=== PATIENT | female | born 1940 | race Caucasian/White ===

== ENCOUNTER 2020-04-22 09:31 | Outpatient (CLI) | payer MEDICARE, SELFPAY ==
[2020-04-22 09:55] LABS: Basophils Percent Auto 0.8 % (0.2-1.2); Eosinophils Absolute Auto 0.1 K/mm3 (0-0.3); Eosinophils Percent Auto 2.8 % (0-4.4); Hematocrit 38.7 % (37.0-47.0); Hemoglobin 12.9 g/dL (12.0-15.0); Immature Granulocyte Absolute 0.01 K/mm3 (0.00-0.031); Immature Granulocyte Percent A 0.2 % (0-0.5); Lymphocytes Absolute Auto 1.63 K/mm3 (0.9-3.2); Lymphocytes Percent Auto 32.1 % (18.3-44.2); Mean Corpuscular HGB Conc 33.3 g/dl (32-36); Mean Corpuscular Hemoglobin 29.7 pg (26-34); Mean Corpuscular Volume 89.2 fl (80-100); Mean Platelet Volume 10.1 fl (7.4-10.4); Monocytes Absolute Auto 0.4 K/mm3 (0.1-0.6); Monocytes Percent Auto 8.5 % (2.6-8.5); Neutrophils Absolute Auto 2.8 K/mm3 (1.3-6.7); Neutrophils Percent Auto 55.6 % (45.5-73.1); Platelet Count Result 204 k/mm3 (150-375); Red Blood Count 4.34 M/mm3 (4.2-5.4); Red Cell Distribution Width 12.9 % (11.5-14.5); White Blood Count 5.1 K/mm3 (4.5-10.0)
[2020-04-22 10:06] LABS: Alanine Aminotransferase 19 U/L (4-35); Albumin Level 4.3 g/dL (3.5-5.1); Alkaline Phosphatase 76 U/L (38-126); Anion Gap 6 mmol/L (8-16); Aspartate Amino Transferase 25 U/L (14-36); Bilirubin,Total 0.6 mg/dL (0.2-1.3); Blood Urea Nitrogen 25 mg/dL (7-17); Calcium 9.1 mg/dL (8.4-10.2); Carbon Dioxide 31 mmol/L (22-30); Chloride 101 mmol/L (98-107); Estimated Glomerular Filt Rate > 60; Glucose 108 mg/dL (65-105); Potassium 4.2 mmol/L (3.4-5.0); Sodium 138 mmol/L (137-145)
[2020-04-22 11:22] LABS: Vitamin D 25 Hydroxy 30.8 ng/mL
== END 2020-04-22 09:32 | disposition home or self-care (01) ==
PROVIDERS: PCP Internal Medicine; Visit Provider Clinical Nurse Specialist
DX: Z13.228 Encounter for screening for other metabolic disorders (principal); M85.80 Other specified disorders of bone density and structure, unspecified site
CPT/HCPCS: 36415; 80053; 82306; 85025

== ENCOUNTER → 2020-04-30 10:13 | Outpatient (CLI) | payer MEDICARE, SELFPAY ==
--- NOTE | ~2020-04-30 | MM_ITS ---
EXAMINATION: MM screening [facility] BI w briana HISTORY: Screening mammogram TECHNIQUE: Craniocaudal and mediolateral oblique 3-D tomosynthesis images were obtained and synthetic 2-D images were generated. CAD analysis was submitted and interpreted. COMPARISON: 05/26/2018, 04/19/2017, 03/16/2016, 10/29/2015 BREAST PARENCHYMAL COMPOSITION: The breasts are almost entirely fatty. FINDINGS: There are stable asymmetries in the right breast on the craniocaudal view. There is no evid ence of suspicious mass, calcification, or architectural distortion to suggest malignancy in either b reast. There has been no suspicious interval change. IMPRESSION: 1. No mammographic evidence of malignancy. 2. Recommend routine screening mammography in one year. BI-RADS Category 2: Benign finding(s). Reviewed, dictated and finalized at location A. 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
== END ==
PROVIDERS: PCP Internal Medicine; Visit Provider Obstetrics & Gynecology
DX: Z12.31 Encounter for screening mammogram for malignant neoplasm of breast (principal)
CPT/HCPCS: 77063; 77067

== ENCOUNTER 2020-10-30 08:29 | Outpatient (CLI) | payer MEDICARE, SELFPAY ==
[2020-10-30 08:52] LABS: Basophils Percent Auto 0.7 % (0.2-1.2); Eosinophils Absolute Auto 0.2 K/mm3 (0-0.3); Eosinophils Percent Auto 2.7 % (0-4.4); Hematocrit 38.3 % (37.0-47.0); Immature Granulocyte Absolute 0.01 K/mm3 (0.00-0.031); Immature Granulocyte Percent A 0.2 % (0-0.5); Lymphocytes Absolute Auto 1.85 K/mm3 (0.9-3.2); Lymphocytes Percent Auto 33.5 % (18.3-44.2); Mean Corpuscular HGB Conc 33.9 g/dl (32-36); Mean Corpuscular Hemoglobin 30.4 pg (26-34); Mean Corpuscular Volume 89.5 fl (80-100); Mean Platelet Volume 9.9 fl (7.4-10.4); Monocytes Absolute Auto 0.5 K/mm3 (0.1-0.6); Monocytes Percent Auto 8.9 % (2.6-8.5); Platelet Count Result 207 k/mm3 (150-375); Red Blood Count 4.28 M/mm3 (4.2-5.4); Red Cell Distribution Width 13.2 % (11.5-14.5); White Blood Count 5.5 K/mm3 (4.5-10.0)
[2020-10-30 09:04] LABS: Alanine Aminotransferase 19 U/L (4-35); Albumin Level 4.2 g/dL (3.5-5.1); Alkaline Phosphatase 79 U/L (38-126); Anion Gap 4 mmol/L (8-16); Aspartate Amino Transferase 26 U/L (14-36); Bilirubin,Total 0.7 mg/dL (0.2-1.3); Blood Urea Nitrogen 23 mg/dL (7-17); Calcium 9.9 mg/dL (8.4-10.2); Carbon Dioxide 33 mmol/L (22-30); Chloride 100 mmol/L (98-107); Cholesterol 177 mg/dL (0-200); Estimated Glomerular Filt Rate > 60; Glucose 105 mg/dL (65-105); HDL Direct 69 mg/dL; Potassium 4.2 mmol/L (3.4-5.0); Sodium 137 mmol/L (137-145); Triglycerides 133 mg/dL (<150)
[2020-10-30 09:14] LABS: LDL Cholesterol Direct 74 mg/dL
[2020-10-30 10:02] LABS: Vitamin D 25 Hydroxy 30.7 ng/mL
== END 2020-10-30 08:30 | disposition home or self-care (01) ==
PROVIDERS: PCP Internal Medicine; Visit Provider Clinical Nurse Specialist
DX: I10 Essential (primary) hypertension (principal); E55.9 Vitamin D deficiency, unspecified
CPT/HCPCS: 36415; 80053; 80061; 82306; 85025

== ENCOUNTER 2020-11-13 13:22 | Outpatient (CLI) | payer MEDICARE, SELFPAY ==
--- NOTE | 2020-11-13 13:31 | ECHO_ITS ---
Patient Info Name: Destiny Mullins Age: 80 years : 1940 Gender: Female Ht: 64 in Wt: 189 lbs BSA: 2.00 m2 HR: 88 bpm BP: 107 / 76 mmHg Technical Quality: Good Exam Date: 11/13/2020 2:01 PM Exam Location: [facility] Pulmonary Patient Status: Outpatient Admit Date: 11/13/2020 Staff Ordering Physician: Lissett Sheridan Material Liaison: Moy Rossi, TRISHA, RT Attending Provider: Lissett Sheridan Referring Physician: Arvin PRESLEY; Exam Type: CA echo doppler color flow Study Info Indications R06.02 - Shortness of breath Complete two-dimensional, color flow and Doppler transthoracic echocardiogram is performed. Summary 1. Complete two-dimensional, color flow and Doppler transthoracic echocardiogram is performed. 2. Left ventricular chamber dimension is normal. 3. Left ventricular systolic function is normal, estimated at 65-70%. 4. The left ventricular diastolic function is grade I diastolic dysfunction. 5. E/e' 11 is mildly elevated. 6. Left atrial chamber dimension is mildly enlarged. 7. The mitral valve has mildly calcified annulus. Left Ventricle E/e' 11 is mildly elevated. Left ventricular chamber dimension is normal. Left ventricular systolic function is normal, estimated at 65-70%. The left ventricular diastolic function is grade I diastolic dysfunction. Right Ventricle Right ventricular chamber dimension is normal. Right ventricular systolic function is normal. Left Atria Left atrial chamber dimension is mildly enlarged. Right Atria Right atrial chamber dimension is normal. Aortic Valve The aortic valve is probable trileaflet. There is no aortic valve stenosis. There is no aortic valve regurgitation. Pulmonic Valve There is no pulmonic regurgitation. Mitral Valve The mitral valve has mildly calcified annulus. There is no mitral valve stenosis. There is no mitral valve regurgitation. Tricuspid Valve There is no tricuspid valve regurgitation. Pericardium/Pleural There is no pericardial effusion. Inferior Vena Cava Normal inferior vena cava with >50% collapse upon inspiration consistent with normal right atrial pressure, 5 mmHg. Aorta The aortic root size at the sinus of Valsalva is normal. Left Ventricular Outflow Tract Name Value Normal LVOT 2D LVOT Diameter 1.9 cm LVOT Doppler LVOT Peak Gradient 4 mmHg LVOT Mean Gradient 2 mmHg LVOT VTI 19 cm LVOT VTI/AV VTI Ratio 0.9 LVOT Stroke Volume 55 ml LVOT CO 5.0 l/min LVOT CI 2.5 l/min/m2 Mitral Valve Name Value Normal MV Doppler MV Decel Sumner 313 cm/s2 MV PHT 69 ms
--- NOTE | 2020-11-13 13:32 | ECG_ITS ---
Measurements Intervals [place] Rate: 81 P: 30 MD: 155 QRS: -1 QRSD: 94 T: 31 QT: 379 QTc: 440 Interpretive Statements SINUS RHYTHM POSSIBLE LEFT ATRIAL ENLARGEMENT LOW QRS VOLTAGE IN PRECORDIAL LEADS BASELINE ARTIFACT- I, III, AVR, AVL, AVF BORDERLINE ECG Electronically Signed On 11-13-2020 14:44:12 CDT by Shorty Herbert D.O.
== END 2020-11-13 13:23 | disposition home or self-care (01) ==
LOC: ANHCARD 13:24
PROVIDERS: PCP Internal Medicine; Visit Provider Clinical Nurse Specialist
DX: R06.02 Shortness of breath (principal)
CPT/HCPCS: 93005; 93306

== ENCOUNTER 2021-01-24 15:26 | Outpatient (CLI) | payer MEDICARE, SELFPAY ==
--- NOTE | ~2021-01-24 | CT_ITS ---
EXAMINATION: CT abdomen pelvis w con INDICATION: Left lower quadrant pain, history of endometrial cancer TECHNIQUE: Computed tomographic images of the abdomen and pelvis were obtained after the administrati on of 100 cc of Omnipaque 350 intravenous contrast. The dose-length product (DLP) was 985.89 mGy-cm. Automated exposure control and iterative reconstruction technique were employed. COMPARISON: 08/04/2013 FINDINGS: The lung bases are clear. The heart size is normal. The liver, spleen, pancreas, gallbladde r, and adrenal glands are normal. There is a large diverticulum of the second portion of the duodenum . There is a 3 cm cyst of the right kidney. No pathologically enlarged abdominal or pelvic lymph node s are identified. There is no free intraperitoneal gas or evidence of bowel obstruction. There is odessa cified atherosclerosis of the aorta and many of the other arteries. Colonic diverticulosis is presen t without evidence of diverticulitis. The appendix is normal. There is severe lower thoracic and lumb ar spondylosis. A tiny fat-containing umbilical hernia is noted. IMPRESSION: 1. No CT correlate for the patient's symptoms. Reviewed, dictated and finalized at location A.
[2021-01-24 16:12] LABS: Estimated Glomerular Filt Rate > 60
== END 2021-01-24 15:27 | disposition home or self-care (01) ==
PROVIDERS: PCP Internal Medicine; Visit Provider Internal Medicine
DX: R10.9 Unspecified abdominal pain (principal)
CPT/HCPCS: 74177; Q9967

== ENCOUNTER 2021-05-01 08:50 | Outpatient (CLI) | payer MEDICARE, SELFPAY ==
[2021-05-01 09:37] LABS: Basophils Percent Auto 0.6 % (0.2-1.2); Eosinophils Absolute Auto 0.2 K/mm3 (0-0.3); Eosinophils Percent Auto 3.1 % (0-4.4); Hematocrit 37.8 % (37.0-47.0); Hemoglobin 12.8 g/dL (12.0-15.0); Immature Granulocyte Absolute 0.02 K/mm3 (0.00-0.031); Immature Granulocyte Percent A 0.4 % (0-0.5); Lymphocytes Absolute Auto 1.57 K/mm3 (0.9-3.2); Mean Corpuscular HGB Conc 33.9 g/dl (32-36); Mean Corpuscular Hemoglobin 30.9 pg (26-34); Mean Corpuscular Volume 91.3 fl (80-100); Mean Platelet Volume 9.9 fl (7.4-10.4); Monocytes Absolute Auto 0.5 K/mm3 (0.1-0.6); Monocytes Percent Auto 9.8 % (2.6-8.5); Neutrophils Absolute Auto 2.7 K/mm3 (1.3-6.7); Neutrophils Percent Auto 54.1 % (45.5-73.1); Platelet Count Result 211 k/mm3 (150-375); Red Blood Count 4.14 M/mm3 (4.2-5.4); Red Cell Distribution Width 13.3 % (11.5-14.5); White Blood Count 4.9 K/mm3 (4.5-10.0)
[2021-05-01 10:29] LABS: Vitamin D 25 Hydroxy 26.1 ng/mL
[2021-05-01 11:41] LABS: Alanine Aminotransferase 18 U/L (4-35); Albumin Level 4.3 g/dL (3.5-5.1); Alkaline Phosphatase 72 U/L (38-126); Anion Gap 5 mmol/L (8-16); Aspartate Amino Transferase 24 U/L (14-36); Bilirubin,Total 0.7 mg/dL (0.2-1.3); Blood Urea Nitrogen 17 mg/dL (7-17); Calcium 9.6 mg/dL (8.4-10.2); Carbon Dioxide 31 mmol/L (22-30); Chloride 101 mmol/L (98-107); Cholesterol 165 mg/dL (0-200); Estimated Glomerular Filt Rate > 60; Glucose 103 mg/dL (65-110); HDL Direct 66 mg/dL; Potassium 4.3 mmol/L (3.4-5.0); Sodium 137 mmol/L (137-145); Triglycerides 111 mg/dL (<150)
[2021-05-01 11:52] LABS: LDL Cholesterol Direct 69 mg/dL
== END 2021-05-01 08:51 | disposition home or self-care (01) ==
PROVIDERS: PCP Internal Medicine; Visit Provider Clinical Nurse Specialist
DX: E55.9 Vitamin D deficiency, unspecified (principal); R53.83 Other fatigue; R06.02 Shortness of breath; E78.5 Hyperlipidemia, unspecified
CPT/HCPCS: 36415; 80053; 80061; 82306; 84443; 85025

== ENCOUNTER 2021-07-17 10:33 | Outpatient (CLI) | payer MEDICARE, SELFPAY ==
--- NOTE | ~2021-07-17 | XR_ITS ---
XR knee LT min 4V 07/17/2021 10:57 Indication: Left knee pain Procedure: 4 views left knee Comparison: No prior studies for comparison. Findings: There is moderate-severe osteoarthritis of the left knee. Small joint effusion. No fracture or traumatic malalignment. No foreign bodies. Impression: 1: Moderate-severe osteoarthritis of the left knee with small effusion. Reviewed, dictated and finalized at location B. 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
== END 2021-07-17 10:34 | disposition home or self-care (01) ==
LOC: ANHIMG 10:34
PROVIDERS: PCP Internal Medicine; Visit Provider Family Medicine
DX: M25.562 Pain in left knee (principal); M17.12 Unilateral primary osteoarthritis, left knee; M25.462 Effusion, left knee
CPT/HCPCS: 73564

== ENCOUNTER 2021-11-06 09:42 | Outpatient (CLI) | payer MEDICARE, SELFPAY ==
[2021-11-06 10:14] LABS: Anion Gap 9 mmol/L (8-16); Blood Urea Nitrogen 24 mg/dL (7-17); Calcium 9.2 mg/dL (8.4-10.2); Carbon Dioxide 28 mmol/L (22-30); Chloride 101 mmol/L (98-107); Estimated Glomerular Filt Rate > 60; Glucose 97 mg/dL (65-110); Potassium 4.1 mmol/L (3.4-5.0); Sodium 138 mmol/L (137-145)
== END 2021-11-06 09:43 | disposition home or self-care (01) ==
PROVIDERS: PCP Internal Medicine; Visit Provider Clinical Nurse Specialist
DX: I10 Essential (primary) hypertension (principal)
CPT/HCPCS: 36415; 80048

== ENCOUNTER 2022-05-19 13:25 | Outpatient (CLI) | payer MEDICARE, SELFPAY ==
--- NOTE | ~2022-05-19 | US_ITS ---
EXAMINATION: US carotid duplex BI DATE: 05/19/2022 13:59 INDICATION: Dizziness TECHNIQUE: Grayscale, color Doppler, and pulsed Doppler images of the cervical carotid arteries were obtained. The degree of vessel stenosis is placed in one of the following categories: normal, <50%, 5 0-69%, >=70% but less than near-occlusion, near-occlusion, or total occlusion. Note that percent sten osis relative to normal distal artery lumen diameter is indirectly measured from velocity measurement s as described by Kenney, et al. Radiology 2003; 229:340-346. Notes: Normal: Peak systolic velocity <125 centimeters/sec and no plaque <50%. Peak systolic velocity <125 ( EDV <40; ICA/CCA PSV ratio <2.0; used these factors only a tandem lesions or low cardiac output or co ntralateral disease) 50-69 %: PSV 125-230 (EDV 40-100; ratio 2-4) >= 70% but less than near occlusion: PSV greater than 230 (EDV > 100; ratio> 4.0) Near Occlusion: PSV that is variable; markedly narrowed lumen Occlusion: Absent flow on color/spectral Doppler and no lumen on hodgson scale. COMPARISON: None. FINDINGS: RIGHT: The right common carotid artery (CCA) peak systolic velocity (PSV) is 78 cm/s. The right internal car otid artery (ICA) PSV is 64 cm/s. The right ICA end-diastolic velocity (EDV) is 20 cm/s. The right IC A/CCA PSV ratio is 0.8. The external carotid artery (ECA) PSV is 75 cm/s. There is antegrade flow in the right vertebral artery. LEFT: The left CCA PSV is 71 cm/s. The left ICA PSV is 68 cm/s. The left ICA EDV is 28 cm/s. The left ICA/C CA PSV ratio is 1.0. The ECA PSV is 53 cm/s. There is antegrade flow in the left vertebral artery. IMPRESSION: 1. Less than 50% stenosis in the right internal carotid artery by sonographic criteria. 2. Less than 50% stenosis in the left internal carotid artery by sonographic criteria. Reviewed, dictated and finalized at location A. 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 Less than 50% stenosis in the right internal carotid artery by sonographic teresa duncan. 2. Less than 50% stenosis in the left internal carotid artery by sonographic ming noel.
--- NOTE | ~2022-05-19 | XR_ITS ---
XR lumbar spine 2-3V DATE: 05/19/2022 14:06 INDICATION: Chronic low back pain TECHNIQUE: AP, lateral, coned lateral lumbosacral views COMPARISON: None FINDINGS: There is levoscoliosis of the thoracic and upper lumbar spine. Diffuse osteopenia. There is severe degenerative disc disease at L1-2, L2-3, L3-4 and L5-S1 and moderately prominent dege nerative disc disease at L4-5. There is associated mild retrolisthesis at L3-4. No fracture or bone destruction of the lumbar spine is evident. Included lower thoracic and lumbar pe dicles are intact. The sacroiliac joints are intact. Prominent distal aortic calcification without evidence of aneurysm. IMPRESSION: Multilevel severe degenerative disc disease Osteopenia Thoracolumbar levoscoliosis Reviewed, dictated and finalized at location B. TUTOR
== END 2022-05-19 13:26 | disposition home or self-care (01) ==
LOC: CHSIMG 13:27
PROVIDERS: PCP Internal Medicine; Visit Provider Internal Medicine
DX: R42 Dizziness and giddiness (principal); M54.50 Low back pain, unspecified
CPT/HCPCS: 72100; 93880

== ENCOUNTER 2022-05-29 12:15 | Outpatient (CLI) | payer MEDICARE, SELFPAY ==
--- NOTE | 2022-05-29 01:00 | ECHO_ITS ---
Patient Info Name: Destiny Mullins Age: 81 years : 1940 Gender: Female Ht: 63 in Wt: 188 lbs BSA: 1.98 m2 HR: 76 bpm BP: 117 / 69 mmHg Heart Rhythm: Sinus Rhythm Technical Quality: Fair Exam Date: 05/29/2022 1:11 PM Exam Location: [facility] EM[facility] Patient Status: Outpatient Admit Date: 05/29/2022 Staff Ordering Physician: Seng Hollingsworth MD Jail Officer: Shoshana Johnson RDCS Attending Provider: Seng Hollingsworth MD Referring Physician: Darrick MORALES; Exam Type: CA echo doppler color flow Study Info Indications R06.00 - Dyspnea, unspecified Complete two-dimensional, color flow and Doppler transthoracic echocardiogram is performed. Summary 1. Complete two-dimensional, color flow and Doppler transthoracic echocardiogram is performed. 2. Left ventricular chamber dimension is normal. 3. Left ventricular systolic function is normal, estimated at 65-70%. 4. There is mildly increased left ventricular wall thickness. 5. The left ventricular diastolic function is grade I diastolic dysfunction. 6. E/e' 23 is elevated. 7. Left atrial chamber dimension is mildly enlarged. 8. There is mild aortic valve sclerosis. 9. The mitral valve has moderately calcified annulus. 10. No pulmonary hypertension, estimated pulmonary arterial systolic pressure is 23 mmHg. Left Ventricle E/e' 23 is elevated. Left ventricular chamber dimension is normal. Left ventricular systolic function is normal, estimated at 65-70%. There is mildly increased left ventricular wall thickness. The left ventricular diastolic function is grade I diastolic dysfunction. Right Ventricle Right ventricular systolic function is normal and with normal TAPSE 2.1 cm. Right ventricular chamber dimension is normal. Left Atria Left atrial chamber dimension is mildly enlarged. Right Atria Right atrial chamber dimension is normal. Aortic Valve The aortic valve is trileaflet. There is mild aortic valve sclerosis. There is no aortic valve stenosis. There is no aortic valve regurgitation. Pulmonic Valve There is no pulmonic regurgitation. Mitral Valve The mitral valve has moderately calcified annulus. There is no mitral valve stenosis. There is no mitral valve regurgitation. Tricuspid Valve There is no tricuspid valve regurgitation. No pulmonary hypertension, estimated pulmonary arterial systolic pressure is 23 mmHg. Pericardium/Pleural There is no pericardial effusion. Inferior Vena Cava Normal inferior vena cava with >50% collapse upon inspiration consistent with normal right atrial pressure, 5 mmHg. Aorta The aortic root size at the sinus of Valsalva is normal. Left Ventricular Outflow Tract Name Value Normal LVOT 2D LVOT Diameter 2.0 cm LVOT Doppler LVOT Peak Velocity 117 cm/s LVOT Peak Gradient 6 mmHg LVOT Mean Gradient 3 mmHg LVOT VTI 27 cm LVOT VTI/AV VTI Ratio 0.8 LVOT Stroke Volume 82 ml Pulmonic Valve
== END 2022-05-29 12:16 | disposition home or self-care (01) ==
LOC: CHSIMG 12:17
PROVIDERS: PCP Internal Medicine; Visit Provider Internal Medicine
DX: R06.00 Dyspnea, unspecified (principal)
CPT/HCPCS: 93306

== ENCOUNTER 2022-06-24 09:13 | Outpatient (CLI) | payer MEDICARE, SELFPAY ==
--- NOTE | ~2022-06-24 | MM_ITS ---
EXAMINATION: MM screening [facility] BI w briana HISTORY: Screening mammogram TECHNIQUE: Craniocaudal and mediolateral oblique 3-D tomosynthesis images were obtained and synthetic 2-D images were generated. CAD analysis was submitted and interpreted. COMPARISON: 04/30/2020, 05/26/2018, 04/19/2017 BREAST PARENCHYMAL COMPOSITION: The breasts are almost entirely fatty. FINDINGS: There is focal asymmetry in the upper outer quadrant of the right breast. No suspicious mas s, calcification, or architectural distortion are identified in either breast to suggest malignancy. There has been no suspicious interval change. IMPRESSION: 1. No mammographic evidence of malignancy. 2. Recommend routine screening mammography while the patient remains in good health. BI-RADS Category 2: Benign finding(s). 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 No mammographic evidence of malignancy. 2. Recommend routine screening mammography while the patient remains in good he alth. BI-RADS Category 2: Benign finding(s).
--- NOTE | ~2022-06-24 | DEXA_ITS ---
Bone Density Report Name: DUY HASSAN Age: 81 Sex: Female Ethnicity: White Date of : 1940 Indication: postmenopausal; screening for osteoporosis; height loss; Referring Provider: Seng Hollingsworth Study: Bone densitometry was performed. Exam Date: June 24, 2022 Accession number: [id number] Bone Density: Region BMD T-score Z-score Classification AP Spine(L1-L4) 1.147 0.9 3.6 Normal Femoral Neck (Left) 0.654 -1.8 0.6 Osteopenia Total Hip (Left) 0.793 -1.2 0.9 Osteopenia Femoral Neck (Right) 0.709 -1.3 1.1 Osteopenia Total Hip (Right) 0.827 -0.9 1.2 Normal Femoral Neck Mean 0.682 -1.5 0.8 Osteopenia Total Hip Mean 0.810 -1.1 1.0 Osteopenia World Health Organization criteria for BMD impression classify patients as: Normal (T-score at or above -1.0), Osteopenia (T-score between -1.0 and -2.5), or Osteoporosis (T-score at or below -2.5). 10-year Fracture Risk(1): Major Osteoporotic Fracture 13% Hip Fracture 3.4% Reported Risk Factors: [place] (), Neck BMD=0.654, BMI=35.2 (1) FRAX(R) Version 3.08. Fracture probability calculated for an untreated patient. Fracture probability may be lower if the patient has received treatment. Clinical Information Provided by Patient: Has used the following medications: Vitamin D Patient maximum height was 63 Menopause Age: 51 No regular weight bearing exercise Does not regularly consume dairy products Drinks caffeinated beverages Onset of menses at age 13 Number of children 1 Impression: The patient has low bone mass, based on the Left Femoral Neck T-score. Discussion: BONE DENSITY IS LOW AT ONE OR MORE SKELETAL SITES. This patient's lowest T-score is low at one or more skeletal sites. It meets the World Health Organization's (WHO) criteria for ?low bone mass? (T-score between -1.0 and -2.5). The patient's 10-year risk of fracture as calculated by FRAX is less than the threshold where pharmacological therapy is recommended by the National Osteoporosis Foundation (NOF). However, all treatment decisions require clinical judgment and consideration of individual patient factors, including patient preferences, comorbidities, previous drug use, risk factors not captured in the FRAX model (e.g., frailty, falls, vitamin D deficiency, increased bone turnover, interval significant decline in bone density) and possible under or overestimation of fracture risk by FRAX. The patient should follow a healthful lifestyle (good nutrition with adequate calcium and vitamin D, and appropriate weight-bearing exercise). Follow-Up: Consider repeating this study in 2 to 3 years to reassess this patient's status, or sooner if there is some new clinical indication. Reported by: Dr. Chapito Rodriguez on 06/24/2022 10:09:00 AM.
== END 2022-06-24 09:14 | disposition home or self-care (01) ==
LOC: CHSIMG 09:14
PROVIDERS: PCP Internal Medicine; Visit Provider Internal Medicine
DX: Z12.31 Encounter for screening mammogram for malignant neoplasm of breast (principal); Z78.0 Asymptomatic menopausal state; M85.89 Other specified disorders of bone density and structure, multiple sites
CPT/HCPCS: 77063; 77067; 77080

== ENCOUNTER 2022-07-02 08:23 | Outpatient (CLI) | payer MEDICARE, SELFPAY ==
--- NOTE | ~2022-07-02 | MR_ITS ---
. EXAMINATION: MR lumbar spine wo con DATE: 07/02/2022 09:11 INDICATION: Chronic low back pain. TECHNIQUE: Magnetic resonance imaging (MRI) of the lumbar spine was performed without intravenous con trast. COMPARISON: Lumbar spine radiographs 05/19/2022 FINDINGS: There is 14 degrees dextroscoliosis of lumbar spine. There is 14 degrees levoscoliosis of t horacolumbar spine. There is 4 mm retrolisthesis of L2 on L3 and 3 mm retrolisthesis of L3 on L4. The re is mild chronic anterior wedging of T12 vertebral body. There is severely decreased disc height at T11-T12, moderately decreased disc height at T12-L1, severely decreased disc height at L1-L2, L2-L3, and L3-L4, mildly decreased disc height at L4-L5, and severely decreased disc height at L5-S1 with e ndplate remodeling. The distal spinal cord signal intensity is normal. The conus medullaris is at L2. The following disc levels are specifically discussed: L1-L2: The disc is bulging. There is moderate right and severe left facet joint osteoarthritis. There is mild bilateral neural foraminal stenosis. There is mild central canal stenosis. L2-L3: The disc is bulging and has an annular fissure. There is mild right and moderate left facet jhonny int osteoarthritis. There is mild right and moderate left neural foraminal stenosis. There is mild ce ntral canal stenosis. L3-L4: The disc is bulging and has an annular fissure. There is moderate bilateral facet joint osteoa rthritis. There is moderate bilateral neural foraminal stenosis. There is mild central canal stenosis . L4-L5: The disc is bulging. There is moderate right and severe left facet joint osteoarthritis. There is mild bilateral neural foraminal stenosis. There is mild central canal stenosis. L5-S1: The disc is bulging and has an annular fissure. There is moderate bilateral facet joint osteoa rthritis. There is moderate bilateral neural foraminal stenosis. There is mild central canal stenosis . IMPRESSION: 1. Severe lumbar spondylosis. 2. Scoliosis. Reviewed, dictated and finalized at location A. SINGER
== END 2022-07-02 08:24 | disposition home or self-care (01) ==
LOC: CHSIMG 08:23
PROVIDERS: PCP Internal Medicine; Visit Provider Internal Medicine
DX: M54.50 Low back pain, unspecified (principal); M43.06 Spondylolysis, lumbar region; M41.86 Other forms of scoliosis, lumbar region
CPT/HCPCS: 72148

== ENCOUNTER 2022-08-05 09:21 | Outpatient (CLI) | payer MEDICARE, SELFPAY ==
[2022-08-05] MEDS: ZOLEDRONIC ACID 5 MG/100 ML 100 ML 400 MG IVPB (09:40)
[2022-08-05 09:49] VITALS: BP 125/70; PULSE 68; RESP 14; TEMP 36.6; O2SAT 98; BMI 28.3
--- NOTE | 2022-08-05 10:07 | PC.NURSE ---
Patient here for IV Reclast. Education given. All concerns answered. IV Reclast administered. SEE MAR. Tolerated well. Safe exit of hospital.
== END 2022-08-05 09:22 | disposition home or self-care (01) ==
LOC: CHSTREATRM 09:23
PROVIDERS: PCP Internal Medicine; Visit Provider Internal Medicine
DX: M81.0 Age-related osteoporosis without current pathological fracture (principal)
CPT/HCPCS: 96365; J3489

== ENCOUNTER 2022-08-17 09:29 | Outpatient (CLI) | payer MEDICARE, SELFPAY ==
--- NOTE | 2022-08-17 11:00 | EST_ITS ---
Patient Info Name: Destiny Mullins Age: 82 years : 1940 Gender: Female Ht: 63 in Wt: 186 lbs BSA: 1.97 m2 HR: 68 bpm BP: 157 / 96 mmHg Technical Quality: Good Exam Date: 08/17/2022 10:49 AM Exam Location: [facility] Patient Status: Outpatient Admit Date: 08/17/2022 Staff Ordering Physician: Seng Hollingsworth MD Attending Provider: Seng Hollingsworth MD Exam Type: CA stress stu w NM Study Info A regadenoson stress test was performed. History/Risk Factors Hypertension: Yes Dyslipidemia: Yes Summary 1. 1. Negative lexiscan stress test for ischemic ST changes by ECG criteria. 2. 2. Baseline hypertension. 3. 3. Nuclear scan to follow and will be reported separately. Please correlate with it. Protocol: LEXISCAN Stress ECG Details Stage: REST Duration (min): 5 min : 39 sec HR (bpm): 69 SBP (mmHg): 157 DBP (mmHg): 96 Stage: REST Duration (min): 40 min : 55 sec HR (bpm): 68 SBP (mmHg): 157 DBP (mmHg): 96 Stage: STAGE 1 Duration (min): 0 min : 20 sec HR (bpm): 67 SBP (mmHg): 157 DBP (mmHg): 96 Stage: RECOVERY Duration (min): 0 min : 39 sec HR (bpm): 89 SBP (mmHg): 157 DBP (mmHg): 96 Stage: RECOVERY Duration (min): 1 min : 39 sec HR (bpm): 123 SBP (mmHg): 157 DBP (mmHg): 96 Stage: RECOVERY Duration (min): 2 min : 39 sec HR (bpm): 111 SBP (mmHg): 130 DBP (mmHg): 71 Stage: RECOVERY Duration (min): 3 min : 39 sec HR (bpm): 86 SBP (mmHg): 132 DBP (mmHg): 69 Stage: RECOVERY Duration (min): 4 min : 39 sec HR (bpm): 94 SBP (mmHg): 132 DBP (mmHg): 69 Stage: RECOVERY Duration (min): 5 min : 17 sec HR (bpm): 94 SBP (mmHg): 141 DBP (mmHg): 66 Rest HR: 68 bpm Peak HR: 123 bpm Rest Sys BP: 157 mmHg Peak Sys BP: 141 mmHg Max Pred HR: 139 bpm % Max Pred HR: 88 % Target HR: 118 bpm Max RPP: 17,343 bpm*mmHg Termination Reason: Completed Protocol Cardiac Symptoms: None Total Time: 0 min : 20 sec Rest Leon BP: 96 mmHg Peak Leon BP: 66 mmHg Total Dose: 0.4 mg Resting ECG Sinus Rhythm, delayed precordial R/S transition with occasional PVCs. Stress ECG No abnormal ST/T wave changes. Arrhythmias No arrhythmias were observed during the examination. Report Signatures
--- NOTE | 2022-08-17 15:35 | WPDCARIOSTRE ---
Nuclear Stress Test INDICATIONS Indications: WALTERS PROCEDURE Procedure Performed: Myocardial Perf Spect-Multi Procedure: Patient underwent a lexiscan stress test and was immediately injected with 30.0 mCi of cardiolyte. Multiple tomographic images are obtained. These are of good quality. There is a moderate size, moderate severity apical and lateral perfusion defects noted during stress imaging. A separate resting images were obtained after patient was injected with 10.39 mCi of cardiolyte. Multiple tomographic images are obtained. These are of good quality. There is a mild-moderate size, mild-moderate severity apical and lateral perfusion defects noted during stress imaging. CONCLUSION Conclusion: 1. Myocardial perfusion imaging demonstrates fixed apical and lateral perfusion defects which appear to be more attenuation artifacts given defects are somewhat less during stress imaging. 2. No evidence of reversible ischemia. 3. Left ventriculogram demonstrates normal measured ejection fraction of 70%. No wall motion abnormalities. 4. TID score 1.23 is borderline but does not visually dilate and therefore does not suggest LM or triple vessel disease.
== END 2022-08-17 09:30 | disposition home or self-care (01) ==
LOC: CHSIMG 09:31
PROVIDERS: PCP Internal Medicine; Visit Provider Internal Medicine
DX: R94.31 Abnormal electrocardiogram [ECG] [EKG] (principal); R06.00 Dyspnea, unspecified
CPT/HCPCS: 78452; 93017; A9502; J2785

== ENCOUNTER 2022-10-30 08:29 | Outpatient (CLI) | payer MEDICARE, SELFPAY ==
--- NOTE | ~2022-10-30 | CT_ITS ---
CT of the Abdomen and Pelvis: Indication: Abdominal pain Technique: 2.5 mm axial scans were obtained through the abdomen and pelvis following intravenous adm inistration of 100 cc of Omnipaque 350. Dose reduction technique was used on this scan by utilizing a utomated exposure control and iterative reconstruction technique. The dose-length product (DLP) was 7 67.93 mGy-cm. COMPARISON: 01/24/2021 Findings: Scans through the lung bases are unremarkable. The liver, spleen, pancreas, gallbladder, adrenals and kidneys are within normal limits. There are at herosclerotic calcifications of the aorta. No lymphadenopathy. No bowel obstruction or bowel wall thickening. Sigmoid diverticulosis noted. Prominent duodenal diver ticulum noted. Images through the pelvis were performed. Urinary bladder unremarkable. Patient is post hysterectomy. No adnexal mass seen. No ascites. Impression: No acute abnormality seen. Sigmoid diverticulosis as well as duodenal diverticulum. Reviewed, dictated and finalized at location . Impression: No acute abnormality seen. Sigmoid diverticulosis as well as duodenal diverticulum.
[2022-10-30 08:48] LABS: Estimated Glomerular Filt Rate > 60
== END 2022-10-30 08:30 | disposition home or self-care (01) ==
LOC: CHSIMG 08:31
PROVIDERS: PCP Internal Medicine; Visit Provider Internal Medicine
DX: R10.31 Right lower quadrant pain (principal); K57.30 Diverticulosis of large intestine without perforation or abscess without bleeding
CPT/HCPCS: 74177; Q9967

== ENCOUNTER 2023-07-29 16:07 | Outpatient (CLI) | payer MEDICARE, SELFPAY ==
--- NOTE | ~2023-07-29 | XR_ITS ---
EXAMINATION: XR knee LT 3V DATE: 07/29/2023 16:27 INDICATION: Left knee pain. TECHNIQUE: 3 views of left knee including standing views were obtained. COMPARISON: Left knee radiographs 07/17/2021 FINDINGS: There is varus angulation at the knee. There is lateral subluxation of patella. No fracture . There is severe osteoarthritis of medial and patellofemoral compartments and mild osteoarthritis of lateral compartment. There is a small knee joint effusion. IMPRESSION: 1. Severe left knee osteoarthritis. 2. Small left knee joint effusion. Reviewed, dictated and finalized at location E. 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
== END 2023-07-29 16:08 | disposition home or self-care (01) ==
LOC: CHSIMG 16:09
PROVIDERS: PCP Internal Medicine; Visit Provider Internal Medicine
DX: M25.562 Pain in left knee (principal); M17.12 Unilateral primary osteoarthritis, left knee; M25.462 Effusion, left knee
CPT/HCPCS: 73562

== ENCOUNTER 2023-08-19 08:50 | Outpatient (CLI) | payer MEDICARE, SELFPAY ==
[2023-08-19 09:00] VITALS: BMI 31.8
[2023-08-19] MEDS: ZOLEDRONIC ACID 5 MG/100 ML 100 ML 400 MG IVPB (09:10)
[2023-08-19 09:13] VITALS: BP 134/72; PULSE 72; RESP 14; TEMP 37.1; O2SAT 98
--- NOTE | 2023-08-19 09:51 | PC.NURSE ---
Patient here for IV Reclast. Education given. All concerns voiced answered. IV Reclast administered. SEE MAR. Tolerated well. Safe exit of hospital per self/ambulatory.
== END 2023-08-19 09:30 | disposition home or self-care (01) ==
LOC: CHSTREATRM 08:56
PROVIDERS: PCP Internal Medicine; Visit Provider Internal Medicine
DX: M81.0 Age-related osteoporosis without current pathological fracture (principal)
CPT/HCPCS: 96365; 96374; J3489

== ENCOUNTER 2023-11-11 07:25 | Outpatient (CLI) | payer MEDICARE, SELFPAY ==
--- NOTE | ~2023-11-11 | MR_ITS ---
MRI of the left knee Clinical history: Pain Technique: Coronal proton density and proton density-weighted images, sagittal proton-density and T2 fat-sat images, and axial proton-density fat-saturated images were acquired. Findings: Exam degraded by motion artifact on multiple sequences. Anterior cruciate ligament is very poorly delineated. Suggestion intact ligament on axial images, chronic ACL tear is not excluded. Post erior cruciate ligament is intact. Medial collateral ligament and the lateral collateral ligament com plex are intact. Popliteus tendon is intact. There is complex tearing involving the entirety of the medial meniscus, the anterior horn and body se gment completely macerated and essentially absent. There is probable complex tearing of the anterior horn of the lateral meniscus extending into the body segment. There is extensive grade IV chondromalacia of the medial compartment and the lateral femoral condyle. There is diffuse grade IV chondromalacia the patellofemoral compartment. Large tricompartmental oste ophytes are present with additional osteophytes and intercondylar notch. No fracture or suspicious ma rrow edema evident. Extensor mechanism is intact. Moderate joint effusion present. No Lopez's cyst. Impression: Severe tricompartmental osteophytes arthritis, as detailed above. Complex tearing involving the entirety of the medial meniscus, as detailed above. Complicating of the anterior horn and body lateral meniscus. Poor delineation of the ACL. Possible intact ligament seen on axial images, but chronic complete tear is not excluded. Correlate with physical exam for ACL laxity. Moderate joint effusion. Reviewed, dictated and finalized at [facility]. Impression: Severe tricompartmental osteophytes arthritis, as detailed above. Complex tearing involving the entirety of the medial meniscus, as detailed abov e. Complicating of the anterior horn and body lateral meniscus. Poor delineation of the ACL. Possible intact ligament seen on axial images, but chronic complete tear is not excluded. Correlate with physical exam for ACL la xity. Moderate joint effusion.
== END 2023-11-11 07:26 | disposition home or self-care (01) ==
LOC: CHSIMG 07:26
PROVIDERS: PCP Internal Medicine; Visit Provider Internal Medicine
DX: M25.562 Pain in left knee (principal); M17.12 Unilateral primary osteoarthritis, left knee; S83.232A Complex tear of medial meniscus, current injury, left knee, initial encounter; M25.462 Effusion, left knee
CPT/HCPCS: 73721

== ENCOUNTER 2023-12-24 12:52 | Outpatient (CLI) | payer MEDICARE, SELFPAY ==
--- NOTE | ~2023-12-24 | US_ITS ---
EXAMINATION: US venous doppler LE DATE: 12/24/2023 14:05 INDICATION: Dyspnea. Right lower limb swelling. Elevated d-dimer. TECHNIQUE: Grayscale ultrasound images without and with compression and Doppler ultrasound images of the bilateral lower extremity veins were obtained. COMPARISON: None. FINDINGS: The visualized portions of right common femoral vein, profunda (deep) femoral vein, femoral vein, pop liteal vein, posterior tibial veins, peroneal veins, gastrocnemius vein and greater saphenous vein ou tflow are patent. 7.5 x 3.7 x 4.3 cm Lopez's cyst at the right popliteal fossa. The visualized portions of left common femoral vein, profunda femoral vein, femoral vein, popliteal v ein, posterior tibial veins, peroneal veins, gastrocnemius vein and greater saphenous vein outflow ar e patent. IMPRESSION: 1. No deep venous thrombosis in either lower limb. 2. Large Lopez's cyst at the right popliteal fossa. Reviewed, dictated and finalized at location B.
--- NOTE | ~2023-12-24 | CT_ITS ---
EXAMINATION: CTA chest PE protocol DATE: 12/24/2023 13:39 INDICATION: Dyspnea and bilateral lower limb swelling TECHNIQUE: Computed tomography (CT) pulmonary angiogram of the chest was performed with 100 mL Omnipa que-350 intravenous contrast. Additional 3D reconstructions utilizing coronal maximum intensity proje ction (MIP) were performed. Automated exposure control and iterative reconstruction technique were em ployed. The dose-length product was 645.28 mGy-cm. COMPARISON: None FINDINGS: No pulmonary embolism. Mild elevation the left hemidiaphragm. Small calcified left lower lobe nodule consistent with old granulomatous disease. No pneumonia, pulmonary edema or pleural effusion. Heart s ize is normal. No pericardial effusion. Thoracic aorta is normal in caliber with no dissection. No pa thologically enlarged thoracic lymphadenopathy. Visualized upper abdomen is unremarkable. Mild thorac olumbar levoscoliosis with severe spondylosis. There are also bridging osteophytes at multiple levels consistent with diffuse idiopathic skeletal hyperostosis (DISH). IMPRESSION: 1. No pulmonary embolism or other acute cardiopulmonary disease. Reviewed, dictated and finalized at location B.
[2023-12-24 13:22] LABS: Estimated Glomerular Filt Rate > 60
== END 2023-12-24 12:53 | disposition home or self-care (01) ==
LOC: CHSIMG 12:55
PROVIDERS: PCP Internal Medicine; Visit Provider Internal Medicine
DX: R06.00 Dyspnea, unspecified (principal); M79.89 Other specified soft tissue disorders; R79.1 Abnormal coagulation profile; M71.21 Synovial cyst of popliteal space [Baker], right knee
CPT/HCPCS: 71275; 93970; Q9967

== ENCOUNTER 2024-01-19 09:13 | Outpatient (CLI) | payer MEDICARE, SELFPAY ==
--- NOTE | 2024-01-19 09:26 | ECG_ITS ---
Test Date: 2024-01-19 09:36:44 Measurements Intervals [place] Rate: 82 P: 54 MO: 147 QRS: 36 QRSD: 91 T: 61 QT: 354 QTc: 414 Interpretive Statements SINUS RHYTHM WITH SINUS ARRHYTHMIA LOW QRS VOLTAGE IN PRECORDIAL LEADS BORDERLINE ECG No previous ECG available for comparison Electronically Signed On 01-19-2024 10:09:33 CDT by Shorty Herbert D.O.
[2024-01-19 09:34] LABS: Hematocrit 36.5 % (35.0-42.0); Hemoglobin 12.8 g/dL (11.7-13.8)
[2024-01-19 10:17] LABS: Albumin Level 3.4 g/dL (3.4-5.0); Glucose 129 mg/dL (70-99)
== END 2024-01-19 09:14 | disposition home or self-care (01) ==
LOC: CHSLAB 09:15
PROVIDERS: PCP Internal Medicine; Visit Provider Orthopaedic Surgery
DX: E78.5 Hyperlipidemia, unspecified (principal); E55.9 Vitamin D deficiency, unspecified; M17.12 Unilateral primary osteoarthritis, left knee; I49.8 Other specified cardiac arrhythmias
CPT/HCPCS: 36415; 82040; 82947; 85014; 85018; 93005

== ENCOUNTER 2024-02-01 09:53 | Outpatient (RCR) | payer MEDICARE, SELFPAY ==
--- NOTE | 2024-02-01 11:01 | PTOPEVAL1 ---
Assessment and note entered by Dora Rashid DPT Evaluation Information Assessment Status Evaluation Diagnosis L knee pain Other ICD-10 Condition Codes ( M17.12 PT) Onset 02/01/24 Subjective Information Patient reports she has had chronic L knee pain that was not improving with injections. She is now using a cane due to knee pain and poor balance. She has 5 steps to get into the house. She states that walking is when she has the most knee pain. She also reports that sitting down on low chairs and the toilet cause pain. She reports she is scheduled for L TKA on 04/03/24. She is here to do pre-op therapy to strengthen LE. Reported Pain Level Pain Score 0: Self Report Assessment PT Clinical Summary Mrs. Mullins is a 83 year old female who presents to PT with L knee pain. She demonstrates decreased L knee ROM, decreased L LE strength, and impaired gait limited her ability to sit in low chairs and the toilet, ambulate to grocery shop and navigate steps. She is undergoing L TKA on 04/03/24. She would benefit from skilled PT to address impairments and return to PLOF. Plan of Care Interventions Electrical Stimulation,Gait Training,Hot Pack/Cold Pack,Intermittent Compression,Manual Therapy, Neuro Re-education,Patient/Caregiver Educati, Therapeutic Activities,Therapeutic Exercise PT Services Indicated Yes Treatment Frequency and 2x weekly for 10 visits Duration These treatments will address the objective and functional deficits as defined above. The patient will be advanced safely and appropriately in order for the patient to progress towards his/her prior level of function. Additional exercises will be introduced and as well as a comprehensive home exercise program upon discharge, if needed, ?to ensure carryover of functional gains achieved in the clinic. This treatment plan has been reviewed and agreement upon by the patient.
--- NOTE | 2024-03-03 09:37 | OPREHPOC ---
Outpatient Therapy Plan of Care This is a Multidisciplinary Plan of Care that may contain components documented by all disciplines (PT, OT, and ST.) PT Problem 1 PT Problem #1 Knowledge Deficit PT Goal 1 Goal / Goal Update Patient to demonstrate independence with HEP Target Visit 10 Progress Met PT Problem 2 PT Problem #2 Pain PT Goal 1 Goal / Goal Update Patient to report highest pain at 2/10 Target Visit 10 Progress Not Met PT Problem 3 PT Problem #3 Impaired Range of Motion PT Goal 1 Goal / Goal Update Patient to demonstrate 0-120 deg of L knee active ROM to return to sitting on toilet and squatting for house hold tasks at PLOF Target Visit 10 Progress Partially Met PT Problem 4 PT Problem #4 Impaired Strength PT Goal 1 Goal / Goal Update Patient to demonstrate 4+/5 L knee strength to return to ambulation without AD Target Visit 10 Progress Partially Met PT Problem 5 PT Problem #5 Impaired Functional Mobil PT Goal 1 Goal / Goal Update 1. patient to improve LEFS score by 20%. not met 2. patient to complete 6 min walk test with no AD and complete 800' to return to grocery shopping. not met 3. patient to report ability to navigate 5 steps with no increase in L knee pain. not met 4. patient to improve Tinetti balance score by 6 points. not met Target Visit 10 Progress Not Met
--- NOTE | 2024-03-03 09:37 | PTOPREEVAL ---
Assessment and note entered by JT File, PT Evaluation Information Assessment Status Re-evaluation Diagnosis L knee pain Other ICD-10 Condition Codes ( M17.12 PT) Onset 02/01/24 Subjective Information patient is still scheduled to have L knee replacement on 04/03/24. she does follow up with her surgeon next week for another pre-op visit. she reports her pain in the L knee continues, and now the R knee feels it is wearing out as well. Reported Pain Level Pain Score 6,6: Self Report Assessment PT Clinical Summary mrs. holliday presents to skilled PT services for her 10th skilled PT visit today. she is still pre-op on her L TKA. patient has displayed improved L knee active rom, L LE strength, and is independent in use of the cane in the R hand for ambulation on level ground and steps. she will hold therapy at this time until post-op L TKA due to patient having yearly visit limits/restrictions on her insurance. she was educated to be diligent and continue her HEP at home every day until surgery. Plan of Care Interventions Electrical Stimulation,Gait Training,Hot Pack/Cold Pack,Intermittent Compression,Manual Therapy, Neuro Re-education,Patient/Caregiver Educati, Therapeutic Activities,Therapeutic Exercise PT Services Indicated Yes Treatment Frequency and hold therapy until post op L TKA Duration These treatments will address the objective and functional deficits as defined above. The patient will be advanced safely and appropriately in order for the patient to progress towards his/her prior level of function. Additional exercises will be introduced and as well as a comprehensive home exercise program upon discharge, if needed, ?to ensure carryover of functional gains achieved in the clinic. This treatment plan has been reviewed and agreement upon by the patient.
--- NOTE | 2024-04-17 15:22 | PTOPREEVAL ---
Assessment and note entered by [facility] Evaluation Information Assessment Status Re-evaluation Diagnosis left TKA ICD-10 Condition Codes (PT) Z47.89,Z47.1 Other ICD-10 Condition Codes ( M17.12 PT) Onset 04/03/24 Subjective Information Pt. reports she underwent left TKA on 04/03/24. She reports that she is currently using a cane for ambulation. She states that she has not yet returned to driving and her is driving her . She states that she was very active and did all IADL's without assistance prior to surgery. She reports that she is getting better each day in regards to her knee replacement. Her goal is to be able to walk normal and without an AD. Reported Pain Level Pain Score 1,1: Self Report Assessment PT Clinical Summary Pt. enters the clinic 2 weeks post left TKA. She presents with impaired gait, functional decline, impaired strength and impaired ROM on this date. Continued skilled PT is indicated in order to improve these areas to allow the pt. to be able to return to normal gait and normal IADL performance without limitation. Plan of Care Interventions Electrical Stimulation,Hot Pack/Cold Pack, Intermittent Compression,Manual Therapy,Neuro Re- education,Patient/Caregiver Educati,Therapeutic Activities,Therapeutic Exercise PT Services Indicated Yes Treatment Frequency and 2x/week x 12 visits Duration These treatments will address the objective and functional deficits as defined above. The patient will be advanced safely and appropriately in order for the patient to progress towards his/her prior level of function. Additional exercises will be introduced and as well as a comprehensive home exercise program upon discharge, if needed, ?to ensure carryover of functional gains achieved in the clinic. This treatment plan has been reviewed and agreement upon by the patient.
--- NOTE | 2024-04-17 15:46 | OPREHPOC ---
Outpatient Therapy Plan of Care This is a Multidisciplinary Plan of Care that may contain components documented by all disciplines (PT, OT, and ST.) PT Problem 1 PT Problem #1 Knowledge Deficit PT Goal 1 Goal / Goal Update Patient to demonstrate independence with HEP Target Visit 10 Progress Met PT Problem 2 PT Problem #2 Pain PT Goal 1 Goal / Goal Update Patient to report highest pain at 2/10 Target Visit 10 Progress Not Met PT Problem 3 PT Problem #3 Impaired Range of Motion PT Goal 1 Goal / Goal Update Patient to demonstrate 0-120 deg of L knee active ROM to return to sitting on toilet and squatting for house hold tasks at PLOF Target Visit 10 Progress Not Met PT Problem 4 PT Problem #4 Impaired Strength PT Goal 1 Goal / Goal Update Patient to demonstrate 4+/5 L knee strength to return to ambulation without AD Target Visit 10 Progress Not Met PT Problem 5 PT Problem #5 Impaired Functional Mobil PT Goal 1 Goal / Goal Update 1. patient to improve LEFS score by 20%. 2. patient to complete 6 min walk test with no AD and complete 700' to return to grocery shopping. 3. patient to report ability to navigate 5 steps with no increase in L knee pain. not met 4. Patient will be able to ambulate without an AD over level surface with equal ight and left stance time. Target Visit 10 Progress Not Met
== END 2024-04-27 20:00 | disposition still patient (30) ==
LOC: CHSPT 09:53
PROVIDERS: Visit Provider Orthopaedic Surgery
DX: M17.12 Unilateral primary osteoarthritis, left knee (principal)
CPT/HCPCS: 97014; 97110; 97161; 97530; G0283

== ENCOUNTER 2024-03-08 13:53 | Outpatient (CLI) | payer MEDICARE, SELFPAY ==
[2024-03-08 15:28] LABS: Basophils Percent Auto 0.5 % (0.2-1.2); Eosinophils Absolute Auto 0.1 K/mm3 (0-0.3); Eosinophils Percent Auto 1.4 % (0-4.4); Hematocrit 36.7 % (37.0-47.0); Hemoglobin 12.4 g/dL (12.0-15.0); Immature Granulocyte Absolute 0.02 K/mm3 (0.00-0.031); Immature Granulocyte Percent A 0.3 % (0-0.5); Lymphocytes Absolute Auto 2.04 K/mm3 (0.9-3.2); Lymphocytes Percent Auto 26.5 % (18.3-44.2); Mean Corpuscular HGB Conc 33.8 g/dl (32-36); Mean Corpuscular Hemoglobin 31.4 pg (26-34); Mean Corpuscular Volume 92.9 fl (80-100); Mean Platelet Volume 10.2 fl (7.4-10.4); Monocytes Absolute Auto 0.6 K/mm3 (0.1-0.6); Monocytes Percent Auto 7.8 % (2.6-8.5); Neutrophils Absolute Auto 4.9 K/mm3 (1.3-6.7); Neutrophils Percent Auto 63.5 % (45.5-73.1); Platelet Count Result 218 k/mm3 (150-375); Red Blood Count 3.95 M/mm3 (4.2-5.4); Red Cell Distribution Width 13.5 % (11.5-14.5); White Blood Count 7.7 K/mm3 (4.5-10.0)
[2024-03-08 15:42] LABS: Urine Cotinine NEGATIVE
[2024-03-08 15:44] LABS: Albumin Level 4.3 g/dL (3.5-5.1)
[2024-03-08 15:46] LABS: Hemoglobin A1C 6.1 % (<5.7)
[2024-03-08 16:38] LABS: MRSA (PCR) NOT DETECTED (NOT DETECTE)
[2024-03-09 12:32] LABS: Anion Gap 4 mmol/L (4-12); Blood Urea Nitrogen 33 mg/dL (7-17); Calcium 9.3 mg/dL (8.4-10.2); Carbon Dioxide 27 mmol/L (22-30); Chloride 97 mmol/L (98-107); Estimated Glomerular Filt Rate 53; Glucose 100 mg/dL (65-110); Potassium 3.8 mmol/L (3.4-5.0); Sodium 128 mmol/L (137-145)
== END 2024-03-08 13:54 | disposition home or self-care (01) ==
PROVIDERS: Anesthesiology; PCP Internal Medicine; Visit Provider Orthopaedic Surgery
DX: Z01.812 Encounter for preprocedural laboratory examination (principal); M17.12 Unilateral primary osteoarthritis, left knee; Z51.81 Encounter for therapeutic drug level monitoring
CPT/HCPCS: 36415; 80048; 80307; 82040; 83036; 85025; 87641

== ENCOUNTER 2024-04-03 00:23 | Day surgery (SDC) | payer MEDICARE, SELFPAY ==
[2024-03-08 14:26] VITALS: BP 133/53; PULSE 80; RESP 16; TEMP 36.9; O2SAT 94; BMI 32.8
--- NOTE | 2024-03-08 14:44 | PC.NURSE ---
Report to the Outpatient Waiting Room, entrance under the green pavilion located off [facility], at time 10:00am___on date _04/03/24 . Planned Procedure Time: __12:00pm .? Time changes happen often and if your time is changed the preop area will call you the afternoon before. - You and your visitor will be asked to self-screen and do not enter if you have any COVID symptoms. Please call surgeon if you need to reschedule. - A mask is optional within the hospital at this time. Patients may have clear liquids (water, carbonated beverages, clear teas, apple juice) until 3 hours prior to surgery with a maximum of 20 ounces. - No food from midnight until time of surgery and no smoking (0900am) Take only the following medications with a SIP of water on the morning of surgery: __None DO NOT STOP ANY OF YOUR OTHER PRESCRIPTION MEDICATIONS PRIOR TO SURGERY EXCEPT THE FOLLOWING Medications to discontinue per physician Hold all vitamins, supplements, herbs and probiotics 3 days prior per Anesthesia. Date to take last dose 03/30/24 Please no make-up, nail greenlandic, hairspray, perfume, deodorant, or body powder the day of surgery.? No jewelry (including any body piercings) or valuables the day of surgery, leave them at home.? Please take a shower or bath the night before, or the morning of, surgery with an antibacterial soap.? Wear comfortable, loose fitting clothing.? Children are encouraged to wear pajamas. - Jewelry must be removed prior to entering the operating room.? Rings and piercings that are not removed may be cut off. - The hospital will not accept responsibility for valuables.? - Please leave all valuables, including medications, at home the day of surgery. If you are going home after surgery, a licensed emergency medical technician/driver must drive you home.? - NO public transportation without another adult if you receive anesthesia. - We recommend that an adult stay with you for 24 hours following discharge. - We also recommend that you do not drive, make important decision, drink alcoholic beverages, or take any drugs that were not prescribed by your health care provider for at least 24 hours after your discharge time. Follow any additional instructions given to you from your surgeon. Telephone instructions given to ___patient and asked if any additional questions and then verbalized understanding. Patient advised to call surgeon office or pre surgery nurse liaison [phone] if any additional questions.
[2024-04-03] VITALS (13 sets, daily range): BP systolic 108–141; BP diastolic 49–80; PULSE 76–102; RESP 14–22; TEMP 36.2–37.2; O2SAT 94–100
--- NOTE | ~2024-04-03 | XR_ITS ---
[id number] Ordering provider: Glen Tamayo MD History: . POST-OP, LEFT TKA . Comparison: None. FINDINGS: BONES: No acute fracture or dislocation. JOINT SPACES: Total knee arthroplasty. SOFT TISSUES: Postoperative changes in the subcutaneous tissues. IMPRESSION: No acute osseous abnormality left knee. Left total knee arthroplasty. Reviewed, dictated and finalized at location A.
[2024-04-03] MEDS: LACTATED RINGERS 1,000 ML 30 ML IV CONT ×2 (10:45→14:20)
[2024-04-03] MEDS: TRANEXAMIC ACID 1,000MG/ISO100 1,000 MG/100 ML BAG 200 MG IVPB (10:45)
[2024-04-03] MEDS: ACETAMINOPHEN 500 MG TABLET 1000 MG PO (10:45)
--- NOTE | 2024-04-03 11:36 | WPDANESEPPF ---
Anes - Initial Pre Proc Eval Procedure: Operation Date: 04/03/24 12:00 Proposed Procedures p Left Total Knee Arthroplasty - Glen Tamayo MD Date/Time: 04/03/24 11:36 Surgeon: Glen Tamayo MD Pre Op Diagnosis: Prim O A Lt Knee Patient Data Age: 83 Gender: F Height: 1.6 m Weight: 82.4 kg Last Vital Signs Temp 36.8 C 04/03/24 10:45 Pulse 102 H 04/03/24 10:45 Resp 14 04/03/24 10:45 BP 138/62 04/03/24 10:45 Pulse Ox 96 04/03/24 10:45 O2 Del Method Room Air 04/03/24 10:45 Allergies Allergy/AdvReac Type Severity Reaction Status Date / Time No Known Allergies Allergy Verified 04/03/24 10:56 Home Medications Medication Instructions Recorded Confirmed Type pravastatin 40 mg tablet See Rx Instructions .Route 01/13/22 03/08/24 Rx .COMPLEX #90 tabs losartan 50 mg-hydrochlorothiazide 1 tablet PO DAILY #90 tabs 02/26/22 03/08/24 Rx 12.5 mg tablet esomeprazole magnesium 20 mg See Rx Instructions .Route 04/21/22 03/08/24 Rx capsule,delayed release .COMPLEX #90 caps potassium chloride 10 mEq oral 10 meq PO DAILY 12/31/23 04/03/24 History packet torsemide 10 mg tablet 10 mg PO QAM 12/31/23 03/08/24 History Vitamin B-12 2,500 mcg PO DAILY 03/08/24 04/03/24 History acetaminophen 650 mg 650 mg PO PRN PRN Pain 03/08/24 03/08/24 History tablet,extended release (Tylenol Arthritis Pain) cholecalciferol (vitamin D3) 50 2,000 unit PO DAILY 03/08/24 04/03/24 History mcg (2,000 unit) tablet (Vitamin D3) Patient hx anesthesia problems: none Family hx anesthesia problems: none Results Review: All pre-operative results and documents have been reviewed as part of the pre-operative evaluation. [facility] Past Medical History Medical History Gonzalez's esophagus with low grade dysplasia Chronic bilateral low back pain without sciatica GERD (gastroesophageal reflux disease) History of endometrial cancer History of postoperative nausea HTN (hypertension) Hyperlipidemia Keratin cyst Osteoarthritis Uterine cancer Surgical History Surgical History H/O: hysterectomy 2013 Family History Family History Mother Family history of malignant neoplasm of uterus Family history of coronary artery disease Father Coronary artery disease Colon cancer Social History Social History Smoking status: Never smoker Alcohol intake: current Substance use: never Do You Feel Safe in your Home?: Yes Lack of Transportation: No Lack of Food: Never True Current Housing: Decline to Answer Concerned About Future Housing: No Difficulty Paying Gas/Electric Bills: No Difficulty Paying for Meds: No Currently Unemployed: No Education: High School Diploma/GED Difficulty w/ Childcare or Family Care: No Living arrangements: with family Additional living arrangements comments: Spiritual care concerns: No Anes - Eval Final PreProcedure Day of Procedure 04/03/24 11:36 Patient weight: obese Heart: regular rate and rhythm Lungs: clear to auscultation Airway: Mallampati scale class II Neurological: alert and oriented Last oral intake: >/= 8 hours ASA classification: II Emergent: no Anesthetic plan: proceed Anesthesia type and monitoring: general LMA and standard monitoring Results Review: All pre-operative results and documents have been reviewed as part of the pre-operative evaluation. Informed Consent: The patient's anesthetic plan and its attendant risks and benefits were discussed with the patient/family/POA. Questions were solicited and answers provided to the satisfaction of the patient/family/POA.
--- NOTE | 2024-04-03 11:39 | WPDHPUPDATE1 ---
History and Physical Update Update Date/Time: 04/03/24 11:39 History and Physical has been reviewed, including an updated exam of the patient. There are NO changes in the patient's condition. Risks, benefits, and alternatives have been discussed and questions answered. Patient agrees to proceed with procedure.
[2024-04-03] MEDS: ceFAZolin 2 GM/D5W 50 ML 2 GM/50 ML BAG IVPB ×2 (12:02→20:12)
[2024-04-03] MEDS: SODIUM CHLORIDE 0.9% IV 37.7 ML, MORPHINE SULFATE INJ (*CRX) 2 MG, ROPivacaine HCL 1% 2... INFILTRATE (12:45)
[2024-04-03] MEDS: TRANEXAMIC ACID 1,000 MG/10 ML AMPUL 1000 MG IV PUSH (14:00)
--- NOTE | 2024-04-03 15:03 | W.PM.PROC2 ---
Procedure Note - Detailed Date of Procedure 04/03/24 Pre-op Diagnosis Severe osteoarthritis left knee. Post-op Diagnosis Same Procedure Performed Calipe[place], kinematically aligned total knee replacement left knee. Surgeon Glen Tamayo MD Anesthesia General Findings According to the calipered kinematic alignment principles, the knee was balanced by the following verification checks incorporating 6 caliper measurements, using an insert goniometer to select the insert thickness, and adjusting the tibial resection following the kinematic alignment algorithm (see figure 160.10 published in [employer] chapter on kinematic alignment total knee arthroplasty.) The steps verified the femoral and tibial components were kinematically aligned coincident to the patient's pre arthritic joint lines, which closely restored the [place] tibial compartment forces and ligament laxities without ligament release. The [employer], [employer] knee, designed specifically for kinematic alignment, fit optimally. The record of verification checks were documented and scanned into the chart. Distal Femoral Resection: Distal Medial 6 mm(cartilage worn), Distal Lateral 8 mm Target thickness of 8mm Unworn, 6mm Worn (No Cartilage). Posterior Femoral Resection: Posterior Medial 5 mm(cartilage worn), Posterior Lateral 5 mm(cartilage worn) Target thickness of 7mm Unworn, 5mm Worn (No Cartilage). Tibia varus preoperative 6 degrees; postoperative 6 degrees. Tibia slope preoperative 5 degrees; postoperative 5 degrees. Description of Procedure General anesthesia was administered. A well-padded tourniquet was placed high on the thigh. The limb was prepped and draped in the usual sterile fashion. The limb was exsanguinated and the tourniquet inflated to 300 mmHg. A longitudinal incision was created over the midline of the knee. Sharp dissection was taken through subcutaneous tissues. Electrocautery was used for hemostasis. A trivector approach to the knee joint was performed. The ACL, anterior horns of the menisci, and fat pad were excised, and a subperiosteal dissection was carried along the posterior medial border of the tibia. The thickness of the [place] patella was measured with a caliper. The patella was resected using the oscillating saw. The best fitting anatomic patella button was selected. The fixation holes were drilled. When the patella and patella buttons combined thickness was thicker than the [place] patella, the patella was recut. Starting midway between the top of the notch in the anterior femoral cortex, I drilled a 9 mm diameter hole parallel to the anterior cortex to minimize flexion of the femoral component and promote patella tracking. I verified the existence of a 5-10 mm bone bridge between the posterior aspect of the hole and the anterior limit of the intercondylar notch. An intraosseous positioning eliza was inserted 10 cm into the femur perpendicular to the distal joint line and parallel to the anterior cortex. I used a distal femoral referencing guide that compensated 2 mm when the cartilage was worn on the distal medial femoral condyle, and 2 mm when the cartilage was worn on the distal lateral femoral condyle. The basis for setting the distal and posterior femoral resection guide is knowing that the varus and valgus grade II to IV Kellegren-Kieran osteoarthritic knees have negligible bone wear at 0? and 90? and that the mean full-thickness cartilage wear approximates 2 mm. I measured the thickness of distal femoral resections with a caliper to +/- 0.5 mm. The thickness of each resection was adjusted to match the thickness of the respective condyle of the femoral component within 0.5 mm of target after compensating for cartilage wear and kerf. When the distal resection was 1-2 mm too thin, a recut guide was used to adjust the cut. When the distal resection was too thick, a 1 or 2 mm thick washer was fixed to the back of the 4-in-1 chamfer block to zhao a c
[2024-04-03] MEDS: ONDANSETRON INJ 4 MG/2 ML VIAL IV PUSH (15:26)
[2024-04-03] MEDS: fentaNYL CITRATE INJ (*CRX) 100 MCG/2 ML VIAL 25 MCG IV PUSH (15:38)
--- NOTE | 2024-04-03 16:12 | ADMGEN ---
This patient, Destiny Mullins, was admitted to [facility] Surg Room 306-01. Patient/family oriented to hospital policies and general routines including ID bracelet, bed and alarms, visiting hours, pain management, procedures, bathroom and other care routines, personal items, smoking policy, room service/diet, and visiting hours. Information on how to activate the Rapid Response Team has been discussed. Patient/Family are encouraged to report perceived risks to care and to ask questions if they do not understand what they are told or what they should do.
[2024-04-03] MEDS: SODIUM CHLORIDE 0.9% IV 1,000 ML 125 ML IV CONT (17:15)
[2024-04-03] MEDS: MELOXICAM 7.5 MG TABLET PO (18:35)
[2024-04-03] MEDS: SENNA/DOCUSATE SODIUM TABLET 2 TAB PO (18:35)
[2024-04-03] MEDS: predniSONE 5 MG TABLET PO (18:36)
[2024-04-03] MEDS: ACETAMINOPHEN 325 MG TABLET 650 MG PO (18:36)
--- NOTE | 2024-04-03 19:48 | PC.NURSE ---
Pt experiencing post op nausea r/t anesthesia. Asa and tylenol po orders put in by ortho doc for post op. Pt unable to take and keep down any PO meds at this time. Dr salinas contacted and was relayed the message that pt unable to take po meds at this time and was asked what he would like to do instead. Dr salinas confirmed okay to non admin asa and tylenol tonight. Dr salinas also wanted to add on iv ativan for nausea and anxiety.
[2024-04-03] MEDS: LORazepam INJ (*CRX) 2 MG/ML VIAL 1 MG IV PUSH (20:13)
[2024-04-04 00:08] VITALS: BP 121/57; PULSE 78; RESP 18; TEMP 36.3; O2SAT 94
[2024-04-04] MEDS: ceFAZolin 2 GM/D5W 50 ML 2 GM/50 ML BAG IVPB ×2 (03:03→12:13)
[2024-04-04 05:40] VITALS: BP 121/65; PULSE 85; RESP 20; TEMP 36.6; O2SAT 91
[2024-04-04 06:46] LABS: Basophils Percent Auto 0.1 % (0.2-1.2); Hematocrit 31.8 % (37.0-47.0); Hemoglobin 10.7 g/dL (12.0-15.0); Immature Granulocyte Absolute 0.04 K/mm3 (0.00-0.031); Immature Granulocyte Percent A 0.4 % (0-0.5); Lymphocytes Absolute Auto 0.95 K/mm3 (0.9-3.2); Lymphocytes Percent Auto 10.3 % (18.3-44.2); Mean Corpuscular HGB Conc 33.6 g/dl (32-36); Mean Corpuscular Hemoglobin 31.7 pg (26-34); Mean Corpuscular Volume 94.1 fl (80-100); Mean Platelet Volume 10.6 fl (7.4-10.4); Monocytes Absolute Auto 0.7 K/mm3 (0.1-0.6); Neutrophils Absolute Auto 7.5 K/mm3 (1.3-6.7); Neutrophils Percent Auto 81.2 % (45.5-73.1); Platelet Count Result 184 k/mm3 (150-375); Red Blood Count 3.38 M/mm3 (4.2-5.4); Red Cell Distribution Width 13.2 % (11.5-14.5); White Blood Count 9.2 K/mm3 (4.5-10.0)
[2024-04-04 06:54] LABS: Anion Gap 4 mmol/L (4-12); Blood Urea Nitrogen 28 mg/dL (7-17); Calcium 8.4 mg/dL (8.4-10.2); Carbon Dioxide 28 mmol/L (22-30); Chloride 104 mmol/L (98-107); Estimated CRCL calculation 54 ml/min; Estimated Glomerular Filt Rate > 60; Glucose 103 mg/dL (65-110); Sodium 136 mmol/L (137-145)
[2024-04-04] MEDS: ONDANSETRON INJ 4 MG/2 ML VIAL IV PUSH ×2 (08:24→13:17)
--- NOTE | 2024-04-04 09:18 | PM.DS ---
DS: Admitting Diagnosis Discharge Date 04/04/24 Admitting Diagnosis Knee arthritis DS: Discharge Diagnosis Discharge Diagnosis (1) Status post left knee replacement: Code(s): Z96.652 - Presence of left artificial knee joint Status: Acute Assessment and Plan: Postop day 1: Left total knee arthroplasty. Patient tolerated procedure well. No complications. Pain manageable with pain medication. No numbness or tingling. We had a lengthy discussion regarding postoperative wound care, limitations, expectations, and exercises. Patient shows good understanding. She has had initial physical therapy and is tolerating it well. DVT prophylaxis: 81 mg baby aspirin b.i.d. for 14 days. Pain medication: Percocet. Prednisone. Meloxicam. Patient has followup appointment with Dr. Tamayo in 3 weeks. DS: Summary Hospital Course Reason for hospitalization: Total knee arthroplasty Hospital Course: Patient tolerated procedure well. Has had initial PT/OT. Status at Discharge Functional status at discharge: uses cane/walker Overall status at discharge: patient is progressing back to baseline Time Spent with Patient Time attestation: Total time spent providing and/or coordinating discharge services: Exam Narrative: Obese 83 y/o female. Resting comfortably in bed. Wearing compression socks bilaterally. Dressing intact with no drainage. Mild swelling. Minimal ecchymosis. No erythema. No hematoma. Range of motion limited due to pain. 5-90 degrees. Calf nontender. Neurologic status intact. No varicosities. Distal pulses palpable. DS: Data Data Completed and Pending Labs on day of discharge: Labs from last 24 hours 04/04/24 04/03/24 06:03 10:30 WBC 9.2 RBC 3.38 L Hgb 10.7 L Hct 31.8 L MCV 94.1 MCH 31.7 MCHC 33.6 RDW 13.2 Plt Count 184 MPV 10.6 H Immature Gran % (Auto) 0.4 Neut % (Auto) 81.2 H Lymph % (Auto) 10.3 L [place] % (Auto) 8.0 Eos % (Auto) 0.0 Baso % (Auto) 0.1 L Lymph # (Auto) 0.95 [place] # (Auto) 0.7 H Eos # (Auto) 0.0 Baso # (Auto) 0.0 Abs Immat Gran (auto) 0.04 H Absolute Neuts (auto) 7.5 H Absolute Nucleated RBC 0.000 Nucleated RBC % 0.0 Sodium 136 L Potassium 4.0 Chloride 104 Carbon Dioxide 28 Anion Gap 4 BUN 28 H Creatinine 0.70 Estim Creat Clear Calc 54 Estimated GFR > 60 Glucose 103 Calcium 8.4 Blood Type AB Positive Antibody Screen Negative Discharge Plan Discharge Patient Disposition: Home, Self-Care Discharge Instructions: See green instruction sheets Stand Alone Forms: General Discharge Instructions Follow-up/Referrals: Mara Michaels PA [Physician Paediatric Physiotherapist] - Discharge Medications: New meloxicam 15 mg tablet 15 mg PO DAILY Qty: 30 0RF Rx Instructions: Cut in half. Take 1/2 in morning and 1/2 at night. Take with food. Stop if stomach upset. prednisone 5 mg tablet 5 mg PO DAILY 21 Days Qty: 21 0RF aspirin 81 mg tablet,delayed release (DR/EC) 81 mg PO BID 14 Days Qty: 28 0RF oxycodone-acetaminophen 5-325 mg tablet 1 - 2 tablet PO Q4-6H PRN (Reason: pain) 7 Days Qty: 30 0RF Continued potassium chloride 10 mEq packet 10 meq PO DAILY torsemide 10 mg tablet 10 mg PO QAM cholecalciferol (vitamin D3) [Vitamin D3] 50 mcg (2,000 unit) Tablet 2,000 unit PO DAILY Vitamin B-12 2,500 mcg PO DAILY acetaminophen [Tylenol Arthritis Pain] 650 mg Tablet Extended Release 650 mg PO PRN PRN (Reason: Pain) pravastatin 40 mg tablet See Rx Instructions .ROUTE .COMPLEX Qty: 90 1RF Dose Instruction: TAKE 1 TABLET BY MOUTH EVERY DAY Rx Instructions: TAKE 1 TABLET BY MOUTH EVERY DAY losartan-hydrochlorothiazide 50-12.5 mg tablet 1 tablet PO DAILY Qty: 90 1RF esomeprazole magnesium 20 mg capsule,delayed release(DR/EC) See Rx Instructions .ROUTE .COMPLEX Qty: 90 1RF Dose I
[2024-04-04 09:40] VITALS: BP 121/44; PULSE 75; RESP 18; TEMP 36.8; O2SAT 93
[2024-04-04] MEDS: polyethylene glycoL 3350 17 GM POWD.PACK PO (10:03)
[2024-04-04] MEDS: CYANOCOBALAMIN TAB 2,000 MCG, CYANOCOBALAMIN TAB 500 MCG 2500 MCG PO (10:03)
[2024-04-04] MEDS: CHOLECALCIFEROL 1,000 UNITS TABLET 2000 UNITS PO (10:03)
[2024-04-04] MEDS: SENNA/DOCUSATE SODIUM TABLET 2 TAB PO (10:04)
[2024-04-04] MEDS: POTASSIUM CHLORIDE 20 MEQ PACKET (FOR LIQUID) 10 MEQ PO (10:04)
[2024-04-04] MEDS: LOSARTAN POTASSIUM 50 MG TABLET PO (10:04)
[2024-04-04] MEDS: ASPIRIN 81 MG ENTERIC TABLET PO (10:04)
[2024-04-04] MEDS: hydroCHLOROthiazide 12.5 MG CAPSULE PO (10:04)
[2024-04-04] MEDS: PRAVASTATIN SODIUM 20 MG TABLET 40 MG PO (10:05)
[2024-04-04] MEDS: MELOXICAM 7.5 MG TABLET PO (10:05)
[2024-04-04] MEDS: TORSEMIDE 10 MG TABLET PO (10:06)
[2024-04-04] MEDS: oxyCODONE/ACETAMINOPHEN (*CRX) 5-325 MG TABLET 1 TABLET PO (10:07)
[2024-04-04] MEDS: ACETAMINOPHEN 325 MG TABLET 650 MG PO (12:13)
[2024-04-04 13:40] VITALS: BP 110/40; PULSE 65; RESP 18; TEMP 36.8; O2SAT 95
[2024-04-04 16:16] VITALS: BP 112/50; PULSE 68; RESP 18; TEMP 36.8; O2SAT 100
== END 2024-04-04 15:50 | disposition home or self-care (01) ==
LOC: ANHSURGERY 09:48 → ANH3MEDSUR 16:03
PROVIDERS: PCP Internal Medicine; Visit Provider Orthopaedic Surgery
PROC: (CPT 27447; principal; 2024-04-03 12:00)
DX: M17.12 Unilateral primary osteoarthritis, left knee (principal); M25.762 Osteophyte, left knee; I10 Essential (primary) hypertension; E78.5 Hyperlipidemia, unspecified; K21.9 Gastro-esophageal reflux disease without esophagitis; K22.710 Barrett's esophagus with low grade dysplasia; G89.29 Other chronic pain; M54.50 Low back pain, unspecified; E66.9 Obesity, unspecified; Z68.32 Body mass index [BMI] 32.0-32.9, adult; Z98.890 Other specified postprocedural states; Z85.42 Personal history of malignant neoplasm of other parts of uterus; Z80.49 Family history of malignant neoplasm of other genital organs; Z80.0 Family history of malignant neoplasm of digestive organs; Z82.49 Family history of ischemic heart disease and other diseases of the circulatory system
CPT/HCPCS: 27447; 36415; 73560; 80048; 80307; 82040; 83036; 85025; 86850; 86900; 86901; 87641; 97110; 97116; 97161; 97165; 97530; 97535; C1776; A9270; C1713; J0171; J0690; J1100; J1171; J1885; J2003; J2060; J2270; J2405; J2704; J2795; J3010; J7030; J7120; J7512

== ENCOUNTER 2024-05-02 10:19 | Outpatient (RCR) | payer MEDICARE, SELFPAY ==
--- NOTE | 2024-05-17 11:38 | PTOPPROGNS ---
Assessment and note entered by JT File, PT Evaluation Information Assessment Status Progress Diagnosis left TKA ICD-10 Condition Codes (PT) Z47.89,Z47.1 Other ICD-10 Condition Codes ( M17.12 PT) Onset 04/03/24 Subjective Information patient reports she feels good today. she reports she has no pain in the L knee. she reports she is bothered more by the R knee than the L, especially with walking and stairs. Assessment PT Clinical Summary mrs. holliday presents to skilled PT for her 10th skilled PT visit since her L TKA. she has achieved full L knee active rom, improved strength of the L knee, and ambulation without an AD. however, she has yet to meet all functional goals for walking, stair ambulation, and LEFS score. she would do well to continue skilled PT per post op POC to achieve her remaining goals and return to her prior quality of life/functional activity performance Plan of Care Interventions Therapeutic Exercise,Intermittent Compression, Patient/Caregiver Educati,Manual Therapy,Neuro Re- education,Therapeutic Activities,Hot Pack/Cold Pack,Electrical Stimulation PT Services Indicated Yes Treatment Frequency and continue per post op POC Duration These treatments will address the objective and functional deficits as defined above. The patient will be advanced safely and appropriately in order for the patient to progress towards his/her prior level of function. Additional exercises will be introduced and as well as a comprehensive home exercise program upon discharge, if needed, ?to ensure carryover of functional gains achieved in the clinic. This treatment plan has been reviewed and agreement upon by the patient.
--- NOTE | 2024-05-26 10:57 | OPREHPOC ---
Outpatient Therapy Plan of Care This is a Multidisciplinary Plan of Care that may contain components documented by all disciplines (PT, OT, and ST.) PT Problem 1 PT Problem #1 Knowledge Deficit PT Goal 1 Goal / Goal Update Patient to demonstrate independence with HEP Target Visit 10 Progress Met PT Problem 2 PT Problem #2 Pain PT Goal 1 Goal / Goal Update Patient to report highest pain at 2/10 Target Visit 10 Progress Met PT Problem 3 PT Problem #3 Impaired Range of Motion PT Goal 1 Goal / Goal Update Patient to demonstrate 0-120 deg of L knee active ROM to return to sitting on toilet and squatting for house hold tasks at PLOF Target Visit 10 Progress Met PT Problem 4 PT Problem #4 Impaired Strength PT Goal 1 Goal / Goal Update Patient to demonstrate 4+/5 L knee strength to return to ambulation without AD Target Visit 10 Progress Met PT Problem 5 PT Problem #5 Impaired Functional Mobil PT Goal 1 Goal / Goal Update 1. patient to improve LEFS score by 20%. not met 2. patient to complete 6 min walk test with no AD and complete 700' to return to grocery shopping. not met 3. patient to report ability to navigate 5 steps with no increase in L knee pain. met 4. Patient will be able to ambulate without an AD over level surface with equal ight and left stance time. met for no AD for ambulation Target Visit 12 Progress Partially Met
--- NOTE | 2024-05-26 10:57 | PTOPDC ---
Assessment and note entered by JT File, PT Evaluation Information Assessment Status Discharge Diagnosis left TKA ICD-10 Condition Codes (PT) Z47.89,Z47.1 Other ICD-10 Condition Codes ( M17.12 PT) Onset 04/03/24 Subjective Information patient reports she feels good today. she reports she has no pain in the L knee. she reports the L knee feels great, and she is only bothered with standing, walking, stairs due to the R knee. she reports she knows she needs a new knee on the R side. Reported Pain Level Pain Score 0: Self Report Assessment PT Clinical Summary mrs. holliday presents to skilled PT services for her 12th skilled therapy visit since her L TKA. she presents today having met 62.5% of goals for skilled PT. she displays full L knee rom, L knee strength, and no pain in the L knee. she is limited with activities now due to the R knee that needs replaced. she will DC skilled PT today and continue with HEP on her own with plans to have the R knee replaced early next year. Plan of Care PT Services Indicated Yes
== END 2024-05-26 11:27 | disposition home or self-care (01) ==
LOC: CHSPT 10:19
PROVIDERS: Visit Provider Orthopaedic Surgery
DX: Z47.1 Aftercare following joint replacement surgery (principal); M17.12 Unilateral primary osteoarthritis, left knee; Z96.652 Presence of left artificial knee joint
CPT/HCPCS: 97110; 97112; 97530

== ENCOUNTER 2024-07-20 10:04 | Outpatient (CLI) | payer MEDICARE, SELFPAY ==
--- NOTE | ~2024-07-20 | US_ITS ---
EXAMINATION: US venous doppler [facility] DATE: 07/20/2024 10:29 INDICATION: Left lower limb edema. TECHNIQUE: Grayscale ultrasound images without and with compression and Doppler ultrasound images of the left lower extremity veins were obtained. COMPARISON: Ultrasound 12/24/2023 FINDINGS: The visualized portions of left common femoral vein, profunda (deep) femoral vein, femoral vein, popl iteal vein, peroneal veins, posterior tibial veins, and greater saphenous vein outflow are patent. IMPRESSION: 1. No deep venous thrombosis. Reviewed, dictated and finalized at location A. GAGE ASSISTANT
--- OUTSIDE RECORDS SUMMARY | 2024-07-20 10:55 | XMS_ITS | Clinical Summary ---
Author Organization [facility] Address [address] [place] [address] Care Team Providers Care Thread Weaver Name Role Phone Vinny Villalpando DO Primary Care Provider [phone] Source Comments [facility],non-owned Affiliates and Associated Physician Practices is amultiple site organization consisting of ambulatory clinics and hospital sitesin [place], [place]. This disclosure is being madepursuant to the Care Everywhere program and may not contain all information available regarding this patient. Last updated 18.[facility] [employer] Allergies No known active allergies Medications * Be aware that medications may not be up to date on this document. Alwaysverify current medications with the patient. Medication Sig Dispensed Refills Start Date End Date Status losartan - hydrochlorothiazide (HYZAAR) 50-12.5 MG tablet Take 1 Tab by mouth once daily. Active pravastatin (PRAVACHOL) 40 MG tablet Take 40 mg by mouth at bedtime. Active esomeprazole (NEXIUM) 40 MG capsule Take 40 mg by mouth daily before breakfast. Active ibuprofen (MOTRIN) 600 MG tablet Take 1 Tab by mouth every 6 hours as needed for Pain. 60 Tab 1 08/01/2013 Active Active Problems Problem Noted Date Diagnosed Date Obesity (BMI 30.0-34.9) 10/12/2017 Endometrial cancer 08/05/2013 Family History Medical History Relation Name Comments Cancer - Colon Father Cancer - Uterine Mother Relation Name Status Comments Father Mother Social History Tobacco Use Types Packs/Day Years Used Date Smoking Tobacco: Never Smokeless Tobacco: Never Tobacco Cessation:Counseling Given: Yes Alcohol Use Standard Drinks/Week Comments No 0 (1 standard drink = 0.6 oz pur e alcohol) Sex and Gender Information Value Date Recorded Sex Assigned at Not on file Gender Identity Not on file Sexual Orientation Not on file Last Filed Vital Signs Vital Sign Reading Time Taken Comments Blood Pressure 155/84 10/13/2018 10:30 AM CDT Pulse 88 10/13/2018 10:30 AM CDT Temperature 36.9 ??C (98.4 ??F) 08/06/2013 11:[address] Respiratory Rate 20 08/06/2013 11:29 AM BILLET HEADER Oxygen Saturation 94% 08/06/2013 11:29 AM BILLET HEADER Inhaled Oxygen Concentration - - Weight 84.4 kg (186 lb) 10/13/2018 10:30 AM CDT Height 160 cm (5' 3 ) 10/13/2018 10:30 AM CDT Body Mass Index 32.95 10/13/2018 10:30 AM CDT Plan of Treatment Health Maintenance Due Date Last Done Comments BONE DENSITY TESTING 1941 DTAP/TDAP/TD VACCINES (1 - Tdap) 1960 PNEUMOCOCCAL VACCINE 50+ (1 of 1 - PCV) 1991 ZOSTER VACCINE (1 of 2) 1991 Respiratory Syncytial Virus (RSV) Vaccine Pt: or over 60 yrs (1 - 1-dose 75+ series) 2016 COVID-19 VACCINE ( - 2023-2 5 season) 2024 INFLUENZA VACCINE (#1) 2024 DEPRESSION SCREENING 06/21/2024 HEPATITIS B VACCINE Aged Out No longe r eligible based on patient's age to complete this topic HIB VACCINE Aged Out No longer eligi ble based on patient's age to complete this topic HPV VACCINE Aged Out No longer eligi ble based on patient's age to complete this topic MENINGOCOCCAL (Group B) VACCINE Aged Out No longer eligible based on patient's age to complete this topic MENINGOCOCCAL VACCINE Aged Out No nate filipe eligible based on patient's age to complete this topic Advance Directives * Full Code (Latest Code Status on File) Date Activated Date Inactivated Comments 08/05/2013 2:09 AM 08/06/2013 2:05 PM * FULL RESUSCITATION Date Activated Date Inactivated Comments 07/31/2013 2:41 PM 08/01/2013 5:46 PM Care Teams Thread Weaver Relationship Specialty Start Date End Date Vinny Villalpando DO PCP - General Internal Medicine 07/26/13
--- OUTSIDE RECORDS SUMMARY | 2024-07-20 10:55 | XMS_ITS | Referral Summary ---
Author Organization [facility] Address [address] [place] [address] Care Team Providers Care Accounting Practice Manager Name Role Phone Vinny Villalpando DO Primary Care Provider [phone] [facility],non-owned Affiliates and Associated Physician Practices is amultiple site organization consisting of ambulatory clinics and hospital sitesin [place], [place], [place] and [place]. This disclosure is being madepursuant to the Care Everywhere program and may not contain all information available regarding this patient. Last updated 18.[facility] [employer] Allergies No known active allergies Medications * [...] Obesity (BMI 30.0-34.9) 10/12/2017 Endometrial cancer 08/05/2013 Social History Tobacco Use Types Packs/Day Years [...] ST Respiratory Rate 20 08/06/2013 11:29 AM INTERLIBR[employer] SERVICES LIBRARIAN Oxygen Saturation 94% 08/06/2013 11:29 AM [employer] SERVICES LIBRARIAN Inhaled Oxygen Concentration - - Weight 84.4 kg (186 lb) 10/13/2018 10:30 AM CDT Height 160 cm (5' 3 ) 10/13/2018 10:30 AM CDT Body Mass Index 32.95 10/13/2018 10:30 AM CDT Functional Status Functional Status Response Date of Assess ment Is person deaf or have serious hearing difficult y? No 08/06/2013 Is person blind or have serious difficulty seein g? No 08/06/2013 Does person have serious dif ficulty walking/climbing stairs? No 08/06/2013 Does person have difficulty dressing/bathing? No 08/06/2013 Does person have difficulty doing errands alone? No 08/06/2013 Cognitive Status Response Date of Assessm ent Does person have difficulty concentrating/remembering/making decisions? No 08/06/2013 Plan of Treatment Not on file Advance Directives * Full Code (Latest Code Status on File) Date Activated Date Inactivated Comments 08/05/2013 2:09 AM 08/06/2013 2:05 PM * FULL RESUSCITATION Date Activated Date Inactivated Comments 07/31/2013 2:41 PM 08/01/2013 5:46 PM Care Teams Accounting Practice Manager Relationship Specialty Start Date End Date Vinny Villalpando DO PCP - General Internal Medicine 07/26/13
--- OUTSIDE RECORDS SUMMARY | 2024-07-20 10:55 | XMS_ITS | Patient Health Summary ---
Author Organization [facility] Address [address] [place] [address] Care Team Providers Care Sales Development Executive Name Role Phone Vinny Villalpando DO Primary Care Provider [phone] Note from [facility],non-owned Affiliates and Associated Physician Practices is amultiple site organization consisting of ambulatory clinics and hospital sitesin [place], [place], [place] and [place]. This disclosure is being madepursuant to the Care Everywhere program and may not contain all information available regarding this patient. Last updated 18.[facility] Allergies No known active allergies Medications * Be aware that medications may not be up to date on this document. Alwaysverify current medications with the patient. * losartan - hydrochlorothiazide (HYZAAR) 50-12.5 MG tablet Take 1 Tab by mouth once daily. * pravastatin (PRAVACHOL) 40 MG tablet Take 40 mg by mouth at bedtime. * esomeprazole (NEXIUM) 40 MG capsule Take 40 mg by mouth daily before breakfast. * ibuprofen (MOTRIN) 600 MG tablet(Started 08/01/2013) Take 1 Tab by mouth every 6 hours as needed for Pain. 1 refill left Active Problems Problem Noted Date Diagnosed Date [...] ST Respiratory Rate 20 08/06/2013 11:29 AM CHIEF MINISTER Oxygen Saturation 94% 08/06/2013 11:29 AM CHIEF MINISTER Inhaled Oxygen Concentration - - Weight 84.4 kg (186 lb) 10/13/2018 10:30 AM CDT Height 160 cm (5' 3 ) 10/13/2018 10:30 AM CDT Body Mass Index 32.95 10/13/2018 10:30 AM CDT Procedures * PAP IG RFLX HPV ASCU(Performed 12/12/2013) * CARDIAC RHYTHM STRIP ORDER(Performed 2013) * CBC W AUTO DIFFERENTIAL(Performed 08/05/2013) * BASIC METABOLIC PANEL (CALCIUM TOTAL)(Performed 08/05/2013) * CARDIAC EKG ORDER(Performed 08/02/2013) * LAB RESULTS ORDER(Performed 08/02/2013) * CARDIAC RHYTHM STRIP ORDER(Performed 08/02/2013) * CBC W AUTO DIFFERENTIAL(Performed 08/01/2013) Performed for Endometrial malignant neoplasm (HCC) * PATHOLOGY TISSUE EXAM (STL)(Performed 07/31/2013) Performed for Endometrial malignant neoplasm (HCC) * URINE MICROSCOPIC ONLY REFLEX TO CULTURE(Performed 07/31/2013) Performed for Endometrial malignant neoplasm (HCC) * URINALYSIS REFLEX MICROSCOPIC REFLEX CULTURE(Performed 07/31/2013) Performed for Endometrial malignant neoplasm (HCC) * LAPAROSCOPIC TOTAL HYSTERECTOMY (TLH)(Performed 07/31/2013) 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 - 12/18/2013 7:49 AM CDT Angeline Keane MD LAB - PATHOLOGY/CYTO LOGY ORDERABLES [facility] [address] [place] [address], [facility] * CARDIAC RHYTHM STRIP ORDER (2013 6:55 PM CHIEF MINISTER) Only the most recent of2 resultswithin the time period is included. Narrative 2013 6:55 PM CHIEF MINISTER Ordered by an unspecified provider. Transcriptions Document, Scanned - 2013 6:55 PM CST Scanned Document CARDIAC SERVICES ORD ERABLES * (ABNORMAL) CBC W AUTO DIFFERENTIAL (08/05/2013 4:37 AM CHIEF MINISTER) Only the most recent of2 resultswithin the time period is included. WBC 9.0 4.4 - 10.7 x10^9/L 08/05/2013 5:00 AM [facility] RBC 3.86 3.80 - 5.20 x10^12/L 08/05/2013 5:00 AM [facility] Hemoglobin 11.4(L) 12.0 - 15.6 gm/dL 08/05/2013 5:00 AM [facility] Hematocrit 32.9(L) 35.9 - 45.5 % 08/05/2013 5:00 AM [facility] MCV 85.2 80.7 - 98.3 fl 08/05/2013 5:00 AM [facility] MCH 29.5 26.7 - 34.0 pg 08/05/2013 5:00 AM [facility] MCHC 34.7 30.8 - 35.9 gm/dL 08/05/2013 5:00 AM [facility] Platelet Count 225 153 - 416 x10^9/L 08/05/2013 5:00 AM [facility] RDW-CV 13.0 12.1 - 14.9 % 08/05/2013 5:00 AM [facility] MPV 10.0 9.4 - 12.9 fl 08/05/2013 5:00 AM [facility] Neutrophils % 85.2(H) 44.0 - 73.0 % 08/05/2013 5:00 AM [facility] Lymphocytes % 9.4(L) 20.0 - 43.0 % 08/05/2013 5:00 AM [facility] Monocytes % 5.1 5.0 - 13.0 % 08/05/2013 5:00 AM [facility] Eosinophils % 0.0 0.0 - 6.0 % 08/05/2013 5:00 AM [facility] Basophils % 0.1 0.0 - 2.0 % 08/05/2013 5:00 AM [facility] Immature Granulocytes 0.2 0 - 1 % 08/05/2013 5:00 AM [facility] Neutrophil Absolute 7.66(H) 2.01 - 7.14 x10^9/L 08/05/2013 5:00 AM [facility] Lymphocytes Absolute 0.85(L) 1.07 - 3.94 x10^9/L 08/05/2013 5:00 AM [facility] Monocytes Absolute 0.46 0.26 - 1.07 x10^9/L 08/05/2013 5:00 AM [facility] Eosinophils Absolute 0.00 0 - 0.47 x10^9/L 08/05/2013 5:00 AM [facility] Basophils Absolute 0.01 0 - 0.08 x10^9/L 08/05/2013 5:00 AM [facility] Immature Granulocytes Absolute 0.02 0.00 - 0.06 x10^9/L 08/05/2013 5:00 AM [facility] nRBC Auto 0 /100 WBC 08/05/2013 5:00 AM [facility] Blood BLOOD SPECIMEN / Unknown Lab Venipuncture / Unknown 08/05/2013 4:37 AM CHIEF MINISTER 08/05/2013 4:55 AM [facility] Andres Mejia MD LAB - HEMATOLO GY ORDERABLES [facility] [address] [place] [address] * (ABNORMAL) BASIC METABOLIC PANEL (CALCIUM TOTAL) (08/05/2013 4:37 AM CHIEF MINISTER) Glucose 146(H) 74 - 106 mg/dL 08/05/2013 5:26 AM [facility] Sodium 139 136 - 145 mmol/L 08/05/2013 5:26 AM [facility] Potassium 3.9 3.5 - 5.1 mmol/L 08/05/2013 5:26 AM [facility] Chloride 102 98 - 107 mmol/L 08/05/2013 5:26 AM [facility] CO2 32(H) 22 - 31 mmol/L 08/05/2013 5:26 AM [facility] Calcium 8.8 8.5 - 10.1 mg/dL 08/05/2013 5:26 AM [facility] Anion Gap 5 5 - 15 mmol/L 08/05/2013 5:26 AM [facility] BUN 17 7 - 21 mg/dL 08/05/2013 5:26 AM [facility] Creatinine 0.64 0.50 - 1.30 mg/dL 08/05/2013 5:26 AM [facility] eGFR by MDRD >60 mL/min/1.7 3m2 08/05/2013 5:26 AM [facility] eGFR by MDRD >60 mL/min/1.7 3m2 08/05/2013 5:26 AM [facility] Blood BLOOD SPECIMEN / Unknown Lab Venipuncture / Unknown 08/05/2013 4:37 AM CHIEF MINISTER 08/05/2013 4:55 AM CHIEF MINISTER Andres Mejia MD LAB - CHEMISTR Y ORDERABLES Performing Organization Address [facility]/State/[facility] Co de Phone Number [facility] [address] [place] [address] * LAB RESULTS ORDER (08/02/2013 8:06 PM CHIEF MINISTER) Narrative 08/02/2013 8:06 PM CHIEF MINISTER Ordered by an unspecified provider. Transcriptions Document, Scanned - 08/02/2013 8:06 PM CST Scanned Document LAB - THERAPEUTIC DR UG MONITORING ORDERABLES * CARDIAC EKG ORDER (08/02/2013 8:06 PM CHIEF MINISTER) Narrative 08/02/2013 8:06 PM CHIEF MINISTER Ordered by an unspecified provider. Transcriptions Document, Scanned - 08/02/2013 8:06 PM CST Scanned Document CARDIAC SERVICES ORD ERABLES * GROSS + MICRO EXAM (STL) (07/31/2013 12:25 PM CHIEF MINISTER) Case Report Surgical Pathology Report ? Case: [id number] ? -------- Authorizing Provider: ??Skyler Keane MD ?Ordering Provider: ?? Skyler Keane MD ? Ordering Location: ? [facility] ? Collected: ? 07/31/2013 12:25 PM ? Pathologist: ? Marlen Sheth MD ?Received: ?07/31/2013 12:51 PM ?Signed Out: ?08/02/2013 ??1:13 PM (Final) ? Specimen: ?Uterus w Cervix ? 08/02/2013 1:13 PM CHIEF MINISTER [facility] Final Diagnosis 1. ??Uterus, endometrium, hysterectomy: -- ??Endometrioid adenocarcinoma, FIGO grade 2, FIGO stage IA -- ??Tumor invasion 2 mm of 21 mm myometrial thickness -- ??No lymphovascular invasion identified 2. ??Uterus, myometrium, hysterectomy: -- ??Adenocarcinoma, by extension -- ??Leiomyomata -- ??Adenomyosis -- ??Mild atherosclerosis 3. ??Uterus, serosa, hysterectomy: -- ??Negative for malignancy 4. ??Ovaries and fallopian tubes, bilateral salpingo-oophorect alyssa: -- ??Negative for malignancy SURGICAL PATHOLOGY CANCER CASE SUMMARY: ENDOMETRIUM: Hysterectomy SPECIMEN: Uterine corpus, cervix, right ovary, left ovary, right fallopian tube and left fallopian tube PROCEDURE: ?? Total laparoscopic hysterectomy, bilateral salpingo-oophorect alyssa LYMPH NODE SAMPLING: ?? Not performed TUMOR SITE: ?? Greatest dimension, 2.8 cm Additional dimensions: 2 x 1.5 cm HISTOLOGIC TYPE: ?? Endometrioid adenocarcinoma, not otherwise characterized HISTOLOGIC GRADE: ?? FIGO grade 2 MYOMETRIAL INVASION: ?? Not identified INVOLVEMENT OF CERVIX: ?? Not involved EXTENT OF INVOLVEMENT OF OTHER ORGANS: ? Right ovary: ??Not involved ? Left ovary: ??Not involved ? Right fallopian tube: ??Not involved ? Left fallopian tube: ??Not involved ?? LYMPHOVASCULAR INVASION: ?? Not identified PATHOLOGIC STAGING (pTNM [FIGO]): Primary Tumor (pT) pT1a [IA]: ??Tumor limited to endometrium or invades less than 1/2 of the myometrium Regional Lymph Nodes (pN) pNx: ??Cannot be assessed ? Distant Metastasis (pM) pMx: ??Not applicable ADDITIONAL PATHOLOGIC FINDINGS: ?? Leiomyomata, adenomyosis, atherosclerosis OAN/MM/alj 08/02/2013 1:13 PM [facility] Frozen Section FSA1, uterus, cervix, bilateral fallopian tubes and ovaries: ?? - Endometrioid adenocarcinoma, superficial invasion less than 50%. (MC) 08/02/2013 1:13 PM [facility] Frozen Section Pathologist(s) Florence Resendiz M.D. 08/02/2013 1:13 PM [facility] Gross Description Received in formalin in a container labeled, Aleja Steward, uterus, cervix, both tubes and ovaries frozen section . The container holds a 90 gram, 8 x 7.5 x 6 cm uterus with attached cervix and bilateral adnexa. The serosa is pink-hahn and dull. The ectocervix measuring 3 cm in diameter and displays a hahn unremarkable mucosa. The slit-like os is probe patent and measures 1 cm. The endocervical canal measures 3.5 cm in length and has a hahn nelson bone mucosa. The endometrial cavity is triangular and measures 4 cm from cornu to cornu x 4 cm in length. The endometrium is pink-hahn. At the posterior endometrium near the left cornu is a 2.8 x 2 x 1.5 cm pink-hahn heaped-up mucosal mass. The mass does not appear to involve the lower uterine segment or extend into the endocervical canal or involve the ectocervix. The mass appears to be confined to the posterior endometrium. Two sections of the mass are submitted for frozen section analysis in FSA1 & FSA2. The myometrium measures 2.1 cm in maximum thickness. The myometrium contains a few leiomyomas measuring up to 3 cm in greatest dimension. Multiple leiomyomas are located at the posterior fundus and has a hahn whorled appearance. The right fallopian tube segment measures 5 cm in length x 0.6 cm in diameter and has a fimbriated end. Sections show a patent lumen with no focal lesion. The right ovary measures 1.5 x 1 x 0.6 cm. The external surface is hahn and unremarkable. Bisecting shows a hahn unremarkable ovarian stroma. The left fallopian tube measures 4.5 cm in length x 0.5 cm in diameter and has a fimbriated end. Sections show a patent lumen with no focal lesion. Near the fimbriated end is a 1.5 x 1 cm thinly encapsulated yellow-hahn lobular fragment of fat. The left ovary measures 2 x 1.5 x 0.7 cm. The external surface is hahn and unremarkable. Bisecting shows a hahn unremarkable ovarian stroma. There are no lesions or masses grossly identified. [employer] Agent sections are submitted as follows: FSA1-FSA2 - frozen section remnant, A3 through A5 - contiguous section anterior from ectocervix to fundus, cassettes A6-A7 - remainder of anterior endomyometrium and serosa, A8 through A12 - contiguous section of posterior uterus from ectocervix to fundus including mass with single section bisected in cassette A11-A12, A13 through A15 additional section of posterior endomyometrium with mass, A16 - section of posterior endomyometrium and fundus, A17-A18 - sections of large leiomyoma at fundus, A19 - right fallopian tube and right ovary, A20 - left fallopian tube and left ovary DYT/na 08/02/2013 1:13 PM [facility] Microscopic Description The frozen section diagnosis is confirmed. ?? The endometrium has a moderately differentiated endometrioid adenocarcinoma which invades 2 mm of 2.1 cm myometrial thickness, does not involve cervix and has no lymph-vascular invasion. The tumor has FIGO grade 2 in nuclear features and solid component. There are foci of squamous differentiation with no non-endometrioid cell types or sarcomatoid components present. ??The remainder of endometrium shows cystic atrophy. Myometrium has also adenomyosis and multiple benign leiomyomata. ??The blood vessels show mild atherosclerosis. The serosa is negative for malignancy. ??Sections of both fallopian tubes and ovaries are unremarkable OAN/MM/alj 08/02/2013 1:13 PM [facility] Synoptic Report 08/02/2013 1:13 PM [facility] Pathology/Cytolo gy SPECIMEN FROM UTERINE CERVIX OBTAINED BY HYSTERECTOMY / Unknown 07/31/2013 12:25 PM CHIEF MINISTER 07/31/2013 12:51 PM CHIEF MINISTER Skyler Keane MD LAB - PATHOLOGY/CYT OLOGY ORDERABLES Performing Organization Address City/[facility]/ZIP Co de Phone Number [facility] [address] [place] [address] * URINALYSIS MICROSCOPIC ONLY W/REFLEX CULTURE (07/31/2013 11:00 AM CHIEF MINISTER) Renal Tubular Epithelial Cell UA (none) 07/31/2013 2:10 PM CHIEF MINISTER [facility] Comment:No crystals seen Urine URINE SPECIMEN OBTAINED VIA [facility]WELL[facility] URINARY CATHETER / Unknown 07/31/2013 11:00 AM CHIEF MINISTER 07/31/2013 1:33 PM CHIEF MINISTER Narrative Authorizing Provider Result Cameron Keane MD LAB - URINALYSIS OR DERABLES Performing Organization Address [facility] Co de Phone Number [facility] [address] [place] [address] * (ABNORMAL) URINALYSIS ROUTINE W/REFLEX TO CULTURE (07/31/2013 11:00 AM CHIEF MINISTER) Color UA Yellow Straw, Yellow, Dark Yellow 07/31/2013 1:48 PM CHIEF MINISTER [facility] Clarity UA Clear 07/31/2013 1:48 PM CHIEF MINISTER [facility] Specific [place] UA 1.022 1.005 - 1.030 07/31/2013 1:48 PM CHIEF MINISTER [facility] pH UA 6.5 5.0 - 8.0 pH 07/31/2013 1:48 PM CHIEF MINISTER [facility] Protein UA Negative Negative 07/31/2013 1:48 PM CHIEF MINISTER [facility] Blood UA 1+(A) Negative 07/31/2013 1:48 PM CHIEF MINISTER [facility] Leukocyte UA Negative Negative 07/31/2013 1:48 PM CHIEF MINISTER [facility] Nitrite UA Negative Negative 07/31/2013 1:48 PM CHIEF MINISTER [facility] Glucose UA Negative Negative 07/31/2013 1:48 PM CHIEF MINISTER [facility] Ketone UA Negative Negative 07/31/2013 1:48 PM CHIEF MINISTER [facility] Bilirubin UA Negative Negative 07/31/2013 1:48 PM CHIEF MINISTER [facility] Urobilinogen UA 0.2 0.1 - 1.0 EU/dL 07/31/2013 1:48 PM CHIEF MINISTER [facility] WBC UA Auto 0-2 0-2, 2-5 #/hpf 07/31/2013 1:48 PM CHIEF MINISTER [facility] RBC UA Auto 5-10(A) 0-2, 2-5 #/hpf 07/31/2013 1:48 PM CHIEF MINISTER [facility] Epithelial Cell UA Auto 5-10(A) 0-2, 2-5 #/hpf 07/31/2013 1:48 PM CHIEF MINISTER [facility] Hyaline Casts UA Auto 2-5(A) 0 - 2 #/lpf 07/31/2013 1:48 PM CHIEF MINISTER [facility] Reflex Status Culture not indicated 07/31/2013 1:48 PM CHIEF MINISTER [facility] Urine URINE SPECIMEN OBTAINED VIA [employer]WELL[employer] URINARY CATHETER / Unknown Collection / Unknown 07/31/2013 11:00 AM CHIEF MINISTER 07/31/2013 1:33 PM CHIEF MINISTER Skyler Keane MD LAB - URINALYSIS OR DERABLES Performing Organization Address [facility]/State/[facility] Co de Phone Number [facility] [address] [place] [address] * XR CHEST PA AND LATERAL ROUTINE (07/27/2013 12:53 PM CHIEF MINISTER) Anatomical Region Laterality Modality Chest Radio Fluoroscop y 07/27/2013 1:08 PM CHIEF MINISTER Impressions 07/27/2013 1:08 PM CHIEF MINISTER Clear lungs Narrative 07/27/2013 1:08 PM CHIEF MINISTER XR CHEST PA AND LATERAL*[id number] INDICATION: Preop COMPARISON: None FINDINGS: The cardiomediastinal silhouette is normal. There is no pneumothorax or pleural effusion. No consolidation or pulmonary edema is present. Osseous structures demonstrate mild degenerative disease of the spine. Procedure Note Nabil Oliveira MD - 07/27/2013 XR CHEST PA AND LATERAL*[id number] INDICATION: Preop COMPARISON: None FINDINGS: The cardiomediastinal silhouette is normal. There is no pneumothorax or pleural effusion. No consolidation or pulmonary edema is present. Osseous structures demonstrate mild degenerative disease of the spine. IMPRESSION Clear lungs Skyler Keane MD DIAGNOSTIC IMAGING ORDERABLES * TYPE + SCREEN PANEL (07/27/2013 12:13 PM CHIEF MINISTER) ABO AB 07/27/2013 1:49 PM CHIEF MINISTER [facility] Rh Type Positive 07/27/2013 1:49 PM CHIEF MINISTER [facility] Comment:Historical blood typ e on record. Antibody Screen Negative 07/27/2013 1:49 PM CHIEF MINISTER [facility] Blood Bank BLOOD SPECIMEN / Unknown Venipuncture / Unknown 07/27/2013 12:13 PM CHIEF MINISTER 07/27/2013 12:46 PM CHIEF MINISTER Skyler Keane MD LAB - BLOOD BANK OR DERABLES [facility] * BLOOD TYPE VERIFICATION (07/27/2013 12:05 PM CHIEF MINISTER) ABO AB 07/27/2013 1:33 PM CHIEF MINISTER [facility] Rh Type Positive 07/27/2013 1:33 PM CHIEF MINISTER [facility] Blood Bank BLOOD SPECIMEN / Unknown 07/27/2013 12:05 PM CHIEF MINISTER 07/27/2013 1:10 PM CHIEF MINISTER Skyler Keane MD LAB - BLOOD BANK OR DERABLES [facility] * PATH CONSULT CLINICAL (07/17/2013 9:53 AM CHIEF MINISTER) Pathology Consult () [facility] Comment: CLINICAL HISTORY: The patient is a 72 year-old woman with a history of premenopausal bleeding. ??D C was performed showing G2 endometrial carcinoma, endometrioid type. FINAL DIAGNOSIS: - UTERUS, ENDOMETRIUM, CURETTAGE ([id number], 06/12/2013): - ADENOCARCINOMA, ENDOMETRIOID TYPE WITH SQUAMOUS DIFFERENTIATION - FIGO TUMOR GRADE 2; NUCLEAR GRADE 2 MATERIALS RECEIVED: Received from [facility], [address] [place] [address] [place] [address] are 2 glass slides labeled '[id number].' A copy of the accompanying paperwork is reviewed. ??All material will be returned to the originating institution along with a copy of our report. ??A copy of the consult is also retained at our institution. MICROSCOPIC DESCRIPTION: The microscopic examination of the endometrial curettage show multiple fragments of endometrium with features of an endometrioid adenocarcinoma; FIGO tumor grade 2. ??The malignant cells are forming complex and crowded glands and have intermediate grade nuclei. ??There are focal areas of necrosis. ??Admixed with the malignant glands are focal areas of squamous differentiation (squamous morules). JGG/DOCUMENTATION BILLING CLERK/met The performance characteristics of all immunohistochemical and indirect immunofluorescence stains (if any) cited in this report were determined by the [facility] Laboratory of [facility] in compliance with CLIA '88 regulations. ??Some of these tests rely on the use of analyte-specific reagents and are subject to specific labeling requirements by the FDA. ??Such tests were developed by the [facility] of [facility] and have not been cleared or approved by the FDA. ??The FDA has determined that such clearance or approval is not necessary. These tests are used for clinical purposes and should not be regarded as investigational or for research. This case has been personally reviewed and interpreted by the attending (teaching) pathologist. Final Diagnosis performed by Jaime Cummings MD. Electronically signed 07/18/2013 07/17/2013 9:53 AM CHIEF MINISTER 07/17/2013 9:53 AM CHIEF MINISTER Skyler Keane MD LAB - PATHOLOGY/CYT OLOGY ORDERABLES Performing Organization Address City/State/[facility] Co de Phone Number [address] [phone] Care Teams Sales Development Executive Relationship Specialty Start Date End Date Vinny Villalpando DO PCP - General Internal Medicine 07/26/13
--- OUTSIDE RECORDS SUMMARY | 2024-07-20 10:55 | XMS_ITS | Clinical Summary ---
Author Organization [facility] Address [address] [place] [address]. [place], [place] [address] [place] [id number] Care Team Providers Care Property Claims Adjuster Name Role Phone Unavailable Primary Care Provider Unavailabl e Social History Tobacco Use Types Packs/Day Years Used Date Smoking Tobacco: Never Assessed Comments Unknown Sex and Gender Information Value Date Recorded Sex Assigned at Not on file Legal Sex Female 4:15 PM CDT Gender Identity Not on file Sexual Orientation Not on file Plan of Treatment Health Maintenance Due Date Last Done Comments DTaP, Tdap and Td Vaccines ( 1 - Tdap) 1960 Zoster Vaccines (1 of 2) 1991 Dexa Scan (General) 2006 Pneumococcal Vaccine: 65+ Ye ars (1 of 1 - PCV) 2006 RSV Immunization or 60+ Years (1 - 1-dose 75+ series) 2016 COVID-19 Vaccine (2023-2 5 season) 2024 Influenza Adult (#1) 2024 Meningococcal B Vaccine Aged Out No l onger eligible based on patient's age to complete this topic Meningococcal Vaccine Aged Out No nate filipe eligible based on patient's age to complete this topic RSV Immunizations Under 20 Months Aged Out No longer eligible based on patient's age to complete this topic
== END 2024-07-20 10:05 | disposition home or self-care (01) ==
LOC: CHSIMG 10:06
PROVIDERS: PCP Internal Medicine; Visit Provider Internal Medicine
DX: M79.89 Other specified soft tissue disorders (principal); Z96.652 Presence of left artificial knee joint
CPT/HCPCS: 93971

== ENCOUNTER 2024-11-08 10:25 | Outpatient (CLI) | payer MEDICARE, SELFPAY ==
--- OUTSIDE RECORDS SUMMARY | 2024-11-08 11:03 | XMS_ITS | Clinical Summary ---
Author Organization [facility] Address [address] [place] [address] Care Team Providers Care Blocker Polishing Name Role Phone Vinny Villalpando DO Primary Care Provider Source Comments [facility],non-owned Affiliates and Associated Physician Practices is amultiple site organization consisting of ambulatory clinics and hospital sitesin [place], [place], [place] and [place]. This disclosure is being madepursuant to the Care Everywhere program and may not contain all information available regarding this patient. Last updated 18.[facility] Allergies No known active allergies Medications * Be aware that medications may not be up to date on this document. Alwaysverify current medications with the patient. losartan - hydrochlorothiazide (HYZAAR) 50-12.5 MG tablet Take 1 Tab by mouth once daily. Active pravastatin (PRAVACHOL) 40 MG tablet Take 40 mg by mouth at bedtime. Active esomeprazole (NEXIUM) 40 MG capsule Take 40 mg by mouth daily before breakfast. Active ibuprofen (MOTRIN) 600 MG tablet Take 1 Tab by mouth every 6 hours as needed for Pain. 60 Tab 1 08/01/19 14 Active Active Problems Problem Noted Date Diagnosed [...] drink = 0.6 oz pur e alcohol) Comments No Sex and Gender Information Value Date Recorded Sex Assigned at Not on file Legal Sex Female 9:34 AM STUCCO WORKER Gender Identity Not on file Sexual Orientation Not on file Last Filed Vital Signs Vital Sign Reading Time Taken Comments Blood Pressure 155/84 10/13/2018 10:30 AM CDT Pulse 88 10/13/2018 10:30 AM CDT Temperature 36.9 C (98.4 F) 08/06/2013 11:29 AM STUCCO WORKER Respiratory Rate 20 08/06/2013 11:29 AM STUCCO WORKER Oxygen Saturation 94% 08/06/2013 11:29 AM STUCCO WORKER Inhaled Oxygen Concentration - - Weight 84.4 kg (186 lb) 10/13/2018 10:30 AM CDT Height 160 cm (5' 3) 10/13/2018 10:30 AM CDT Body Mass Index [...] VACCINE ( - 2023-2 5 season) 2024 DEPRESSION SCREENING 06/21/2024 INFLUENZA VACCINE (Season Ended) 2025 HEPATITIS B VACCINE Aged Out No longe r eligible based on patient's age to complete this topic HIB VACCINE Aged Out No longer eligi ble based on patient's age to complete this topic HPV VACCINE Aged Out No longer eligi ble based on patient's age to complete this topic MENINGOCOCCAL (Group B) VACC INE SHARED DECISION-MAKING Aged Out No longer eligibl e based on patient's age to complete this topic MENINGOCOCCAL GROUPS A/C/Y/W VACCINE Aged Out No longer eligible b ased on patient's age to complete this topic Insurance COVENTRY MEDICARE Advance Directives * Full Code (Latest Code Status on File) Date Activated Date Inactivated Comments 08/05/2013 2:09 AM 08/06/2013 2:05 PM * FULL RESUSCITATION Date Activated Date Inactivated Comments 07/31/2013 2:41 PM 08/01/2013 5:46 PM Care Teams Blocker Polishing Relationship Specialty Start Date End Date Vinny Villalpando DO PCP - General Internal Medicine 07/26/13
[2024-11-08 12:00] LABS: Basophils Percent Auto 0.5 % (0.2-1.2); Eosinophils Absolute Auto 0.1 K/mm3 (0-0.3); Hematocrit 38.6 % (37.0-47.0); Hemoglobin 12.5 g/dL (12.0-15.0); Immature Granulocyte Absolute 0.01 K/mm3 (0.00-0.031); Immature Granulocyte Percent A 0.2 % (0-0.5); Lymphocytes Absolute Auto 1.66 K/mm3 (0.9-3.2); Lymphocytes Percent Auto 27.1 % (18.3-44.2); Mean Corpuscular HGB Conc 32.4 g/dl (32-36); Mean Corpuscular Volume 92.6 fl (80-100); Mean Platelet Volume 9.9 fl (7.4-10.4); Monocytes Absolute Auto 0.5 K/mm3 (0.1-0.6); Monocytes Percent Auto 8.2 % (2.6-8.5); Neutrophils Absolute Auto 3.8 K/mm3 (1.3-6.7); Platelet Count Result 209 k/mm3 (150-375); Red Blood Count 4.17 M/mm3 (4.2-5.4); Red Cell Distribution Width 13.6 % (11.5-14.5); White Blood Count 6.1 K/mm3 (4.5-10.0)
[2024-11-08 12:21] LABS: Albumin Level 4.4 g/dL (3.5-5.1)
[2024-11-08 12:24] LABS: Anion Gap 7 mmol/L (4-12); Blood Urea Nitrogen 29 mg/dL (7-17); Calcium 9.8 mg/dL (8.4-10.2); Carbon Dioxide 30 mmol/L (22-30); Chloride 101 mmol/L (98-107); Estimated Glomerular Filt Rate > 60; Glucose 99 mg/dL (65-110); Potassium 4.9 mmol/L (3.4-5.0); Sodium 138 mmol/L (137-145)
[2024-11-08 12:25] LABS: Urine Cotinine NEGATIVE
[2024-11-08 13:16] LABS: MRSA (PCR) NOT DETECTED (NOT DETECTE)
[2024-11-08 13:22] LABS: Hemoglobin A1C 5.7 % (<5.7)
== END 2024-11-08 10:26 | disposition home or self-care (01) ==
LOC: ANHSURGERY 10:28
PROVIDERS: Anesthesiology; PCP Internal Medicine; Visit Provider Orthopaedic Surgery
DX: Z01.812 Encounter for preprocedural laboratory examination (principal); M17.11 Unilateral primary osteoarthritis, right knee; Z51.81 Encounter for therapeutic drug level monitoring
CPT/HCPCS: 36415; 80048; 80307; 82040; 83036; 85025; 87641

== ENCOUNTER 2024-12-05 01:08 | Day surgery (SDC) | payer MEDICARE, SELFPAY ==
[2024-11-08 10:38] VITALS: BP 139/62; PULSE 72; RESP 16; TEMP 36.7; O2SAT 96; BMI 33.9
--- NOTE | 2024-11-08 11:05 | PC.NURSE ---
Report to the Outpatient Waiting Room, entrance under the green pavilion located off [facility], at time ___11:00AM____ on date ___12/05/24____. Planned Procedure Time: ___1:00PM .? Time changes happen often and if your time is changed the preop area will call you the afternoon before. - You and your visitor will be asked to self-screen and do not enter if you have any COVID symptoms. Please call surgeon if you need to reschedule. - A mask is optional within the hospital at this time. Patients may have clear liquids (water, carbonated beverages, clear teas, apple juice) until 3 hours prior to surgery (10:00AM) with a maximum of 20 ounces. - No food from midnight until time of surgery and no smoking, or chewing tobacco (or any form of nicotine). No chewing gum, candy or mints. Take only the following medications with a SIP of water on the morning of surgery: ___NONE DO NOT STOP ANY OF YOUR OTHER PRESCRIPTION MEDICATIONS PRIOR TO SURGERY EXCEPT THE FOLLOWING Hold all vitamins and supplements for 3 days per anesthesiologist.LAST DOSE 12/01/24. Medications to discontinue per physician Date to take last dose Please no make-up, nail montenegrin, hairspray, perfume, deodorant, or body powder the day of surgery.? No jewelry (including any body piercings) or valuables the day of surgery, leave them at home.? Please take a shower or bath the night before, or the morning of, surgery with an antibacterial soap.? Wear comfortable, loose fitting clothing.? - Jewelry must be removed prior to entering the operating room.? Rings and piercings that are not removed may be cut off. - The hospital will not accept responsibility for valuables.? - Please leave all valuables, including medications, at home the day of surgery. If you are going home after surgery, a licensed lokie driver must drive you home.? - NO public transportation without another adult if you receive anesthesia. - We recommend that an adult stay with you for 24 hours following discharge. - We also recommend that you do not drive, make important decision, drink alcoholic beverages, or take any drugs that were not prescribed by your health care provider for at least 24 hours after your discharge time. Follow any additional instructions given to you from your surgeon. Telephone instructions given to ___PATIENT & DAUGHTER and asked if any additional questions and then verbalized understanding. Patient advised to call surgeon office or pre surgery nurse liaison [phone] if any additional questions.
[2024-12-05] VITALS (15 sets, daily range): BP systolic 122–149; BP diastolic 53–71; PULSE 67–96; RESP 12–22; TEMP 36.1–36.7; O2SAT 95–99
--- NOTE | ~2024-12-05 | XR_ITS ---
[id number] Ordering provider: Glen Tamayo MD History: . POST OP RIGHT TKA . Comparison: None. FINDINGS/impression: Total knee arthroplasty is noted. No acute fracture or dislocation. Soft tissues are unremarkable. Reviewed, dictated and finalized at location A.
--- OUTSIDE RECORDS SUMMARY | 2024-12-05 01:56 | XMS_ITS | Clinical Summary ---
Author Organization [facility] Address [address] [place] [address] Care Team Providers Care Chemical Compounder Helper Name Role Phone Vinny Villalpando DO Primary Care Provider Source Comments [facility],non-owned Affiliates and Associated Physician Practices is amultiple site organization consisting of ambulatory clinics and hospital sitesin [place], [place], [place] and [place]. This disclosure is being madepursuant to the Care Everywhere program and may not contain all information available regarding this patient. Last updated 18.[facility] Allergies No known active allergies Medications * [...] on file Legal Sex Female 9:34 AM RN MDS COORDINATOR Gender Identity Not on file Sexual Orientation Not on file Last Filed Vital Signs Vital Sign Reading Time Taken Comments Blood Pressure 155/84 10/13/2018 10:30 AM CDT Pulse 88 10/13/2018 10:30 AM CDT Temperature 36.9 C (98.4 F) 08/06/2013 11:29 AM RN MDS COORDINATOR Respiratory Rate 20 08/06/2013 11:29 AM RN MDS COORDINATOR Oxygen Saturation 94% 08/06/2013 11:29 AM RN MDS COORDINATOR Inhaled Oxygen Concentration - - Weight 84.4 [...] 2:41 PM 08/01/2013 5:46 PM Care Teams Chemical Compounder Helper Relationship Specialty Start Date End Date Vinny Villalpando DO PCP - General Internal Medicine 07/26/13
--- OUTSIDE RECORDS SUMMARY | 2024-12-05 01:56 | XMS_ITS | Clinical Summary ---
Author Organization [facility] Address [facility] [place] [address] Care Team Providers Care Director Market Intelligence Name Role Phone Unavailable Primary Care Provider [...] Td Vaccines ( 1 - Tdap) 1960 Pneumococcal Vaccine: 50+ Ye ars (1 of 1 - PCV) 1991 Zoster Vaccines (1 of 2) 1991 Dexa Scan (General) 2006 RSV Immunization or 60+ Years (1 - 1-dose 75+ series) 2016 COVID-19 Vaccine (2023-2 5 season) 2024 Meningococcal B Vaccine Aged Out No l onger eligible based on patient's age to complete this topic Meningococcal Vaccine Aged Out No nate filipe eligible based on patient's age to complete this topic RSV Immunizations Under 20 Months Aged Out No longer eligible based on patient's age to complete this topic
--- NOTE | 2024-12-05 07:17 | WPDHPUPDATE1 ---
History and Physical Update Update Date/Time: 12/05/24 07:17 History and Physical has been reviewed, including an updated exam of the patient. There are NO changes in the patient's condition. Risks, benefits, and alternatives have been discussed and questions answered. Patient agrees to proceed with procedure.
[2024-12-05] MEDS: ACETAMINOPHEN 500 MG TABLET 1000 MG PO (09:00)
[2024-12-05] MEDS: LACTATED RINGERS 1,000 ML 30 ML IV CONT ×2 (09:00→12:11)
[2024-12-05] MEDS: TRANEXAMIC ACID 1,000MG/ISO100 1,000 MG/100 ML BAG 200 MG IVPB (09:00)
--- NOTE | 2024-12-05 10:00 | P.PNAN_ITS ---
Anes - Initial Pre Proc Eval Procedure: Operation Date: 12/05/24 10:30 Proposed Procedures p Right Total Knee Arthroplasty - Glen Tamayo MD Date/Time: 12/05/24 10:00 Surgeon: Glen Tamayo MD Pre Op Diagnosis: prim oa rt knee Patient Data Age: 84 Gender: F Height: 1.56 m Weight: 82.9 kg Last Vital Signs Temp 97.3 F L 12/05/24 09:00 Pulse 96 12/05/24 09:00 Resp 16 12/05/24 09:00 BP 146/68 H 12/05/24 09:00 Pulse Ox 99 12/05/24 09:00 O2 Del Method Room Air 12/05/24 09:00 Allergies Allergy/AdvReac Type Severity Reaction Status Date / Time No Known Allergies Allergy Verified 12/05/24 09:38 Home Medications ?Medication ?Instructions ?Recorded ?Confirmed ?Type pravastatin 40 mg tablet See Rx Instructions .Route 01/13/22 11/08/24 Rx .COMPLEX #90 tabs esomeprazole magnesium 20 mg See Rx Instructions .Route 04/21/22 11/08/24 Rx capsule,delayed release .COMPLEX #90 caps potassium chloride 10 mEq oral 10 meq PO DAILY 12/31/23 12/05/24 History packet torsemide 10 mg tablet 10 mg PO QAM 12/31/23 11/08/24 History Vitamin B-12 2,500 mcg PO DAILY 03/08/24 12/05/24 History acetaminophen 650 mg 650 mg PO PRN PRN Pain 03/08/24 11/08/24 History tablet,extended release (Tylenol Arthritis Pain) cholecalciferol (vitamin D3) 50 2,000 unit PO DAILY 03/08/24 12/05/24 History mcg (2,000 unit) tablet (Vitamin D3) losartan 100 mg tablet 100 mg PO QAM 11/08/24 11/08/24 History aspirin 81 mg tablet,delayed 81 mg PO BID 14 days #28 tabs 12/05/24 Rx release meloxicam 15 mg tablet 15 mg PO DAILY #30 tabs 12/05/24 Rx oxycodone-acetaminophen 5 mg-325 1 - 2 tablet PO Q4-6H PRN pain 7 12/05/24 Rx mg tablet days #30 tabs prednisone 5 mg tablet 5 mg PO DAILY 3 weeks #21 tabs 12/05/24 Rx Laboratory Tests 12/05/24 08:52 Blood Type AB Positive Antibody Screen Negative Patient hx anesthesia problems: post op nausea/vomiting Family hx anesthesia problems: none Results Review: All pre-operative results and documents have been reviewed as part of the pre- operative evaluation. [facility] Past Medical History Medical History History of postoperative nausea Osteoarthritis HTN (hypertension) Hyperlipidemia GERD (gastroesophageal reflux disease) Uterine cancer Chronic bilateral low back pain without sciatica Keratin cyst History of endometrial cancer Gonzalez's esophagus with low grade dysplasia Surgical History Surgical History Status post left knee replacement (~04/03/24) [place] H/O: hysterectomy 2013 Family History Family History Mother Family history of malignant neoplasm of uterus Family history of coronary artery disease Father Coronary artery disease Colon cancer Social History Social History Smoking status: Never smoker Alcohol intake: never Substance use: never Substance use type: does not use Do You Feel Safe in your Home?: Yes Lack of Transportation: No Lack of Food: Never True Current Housing: I Have Housing Concerned About Future Housing: No Difficulty Paying Gas/Electric Bills: No Difficulty Paying for Meds: No Currently Unemployed: No Education: Don't Know Difficulty w/ Childcare or Family Care: No Living arrangements: with family Additional living arrangements comments: Spiritual care concerns: No Anes - Eval Final PreProcedure Day of Procedure 12/05/24 10:00 Patient weight: obese Heart: regular rate and rhythm Lungs: clear to auscultation Airway: Mallampati scale class II Neurological: alert and oriented Last oral intake: >/= 8 hours ASA classification: III Emergent: no Anesthetic plan: proceed Anesthesia type and monitoring: general LMA and standard monitoring Results Review: All pre-operative results and documents have been reviewed as part of the pre- operative evaluation. Informed Consent: The patient's anesthetic plan and its attendant risks and benefits were discussed with the patient/family/POA. Questions were solicited and answers provided to the satisfaction of the patient/family/POA.
[2024-12-05] MEDS: ceFAZolin 2 GM/D5W 50 ML 2 GM/50 ML BAG IVPB ×2 (10:46→18:08)
[2024-12-05] MEDS: SODIUM CHLORIDE 0.9% IV 37.7 ML, MORPHINE SULFATE INJ (*CRX) 2 MG, ROPivacaine HCL 1% 2... INFILTRATE (10:46)
[2024-12-05] MEDS: GENTAMICIN BONE CEMENT REFOBACIN 1 EACH TOPICAL (11:24)
[2024-12-05] MEDS: TRANEXAMIC ACID 1,000 MG/10 ML AMPUL 1000 MG IV PUSH (11:52)
[2024-12-05] MEDS: ONDANSETRON INJ 4 MG/2 ML VIAL IV PUSH ×2 (12:37→16:13)
[2024-12-05] MEDS: fentaNYL CITRATE INJ (*CRX) 100 MCG/2 ML VIAL 25 MCG IV PUSH ×4 (12:45→13:17)
--- NOTE | 2024-12-05 14:09 | ADMGEN ---
This patient, Destiny Mullins, was admitted to [facility] Surg Room 319-01. Patient/family oriented to hospital policies and general routines including ID bracelet, bed and alarms, visiting hours, pain management, procedures, bathroom and other care routines, personal items, smoking policy, room service/diet, and visiting hours. Information on how to activate the Rapid Response Team has been discussed. Patient/Family are encouraged to report perceived risks to care and to ask questions if they do not understand what they are told or what they should do.
[2024-12-05] MEDS: SODIUM CHLORIDE 0.9% IV 1,000 ML 125 ML IV CONT (14:11)
--- NOTE | 2024-12-05 15:28 | P.OP_ITS ---
Procedure Note - Detailed Date of Procedure 12/05/24 Pre-op Diagnosis Right knee degenerative arthritis. Post-op Diagnosis Same Procedure Performed Calipered, kinematically aligned total knee replacement right knee. Surgeon Glen Tamayo MD Anesthesia General Findings According to the calipered kinematic alignment principles, the knee was balanced by the following verification checks incorporating 6 caliper measurements, using an insert goniometer to select the insert thickness, and adjusting the tibial resection following the kinematic alignment algorithm (see figure 160.10 published in [employer] chapter on kinematic alignment total knee arthroplasty.) The steps verified the femoral and tibial components were kinematically aligned coincident to the patient's pre arthritic joint lines, which closely restored the robinson tibial compartment forces and ligament laxities without ligament release. The [employer] SperiKA knee, designed specifically for kinematic alignment, fit optimally. The patella was very thin laterally, and was treated with lateral patellectomy. The record of verification checks were documented and scanned into the chart. Distal Femoral Resection: Distal Medial 6 mm(cartilage worn), Distal Lateral 6 mm(cartilage worn) Target thickness of 8mm Unworn, 6mm Worn (No Cartilage). Posterior Femoral Resection: Posterior Medial 5 mm(cartilage worn), Posterior Lateral 5 mm(cartilage worn) Target thickness of 7mm Unworn, 5mm Worn (No Cartilage). Description of Procedure General anesthesia was administered. A well-padded tourniquet was placed high on the thigh. The limb was prepped and draped in the usual sterile fashion. The limb was exsanguinated and the tourniquet inflated to 300 mmHg. A longitudinal incision was created over the midline of the knee. Sharp dissection was taken through subcutaneous tissues. Electrocautery was used for hemostasis. A trivector approach to the knee joint was performed. The ACL, anterior horns of the menisci, and fat pad were excised, and a subperiosteal dissection was carried along the posterior medial border of the tibia. Starting midway between the top of the notch in the anterior femoral cortex, I drilled a 9 mm diameter hole parallel to the anterior cortex to minimize flexion of the femoral component and promote patella tracking. I verified the existence of a 5-10 mm bone bridge between the posterior aspect of the hole and the anterior limit of the intercondylar notch. An intraosseous positioning eliza was inserted 10 cm into the femur perpendicular to the distal joint line and parallel to the anterior cortex. I used a distal femoral referencing guide that compensated 2 mm when the cartilage was worn on the distal medial femoral condyle, and 2 mm when the cartilage was worn on the distal lateral femoral condyle. The basis for setting the distal and posterior femoral resection guide is knowing that the varus and valgus grade II to IV Kellegren-Kieran osteoarthritic knees have negligible bone wear at 0? and 90? and that the mean full-thickness cartilage wear approximates 2 mm. I measured the thickness of distal femoral resections with a caliper to +/- 0.5 mm. The thickness of each resection was adjusted to match the thickness of the respective condyle of the femoral component within 0.5 mm of target after compensating for cartilage wear and kerf. When the distal resection was 1-2 mm too thin, a recut guide was used to adjust the cut. When the distal resection was too thick, a 1 or 2 mm thick washer was fixed to the back of the 4-in-1 chamfer block to zhao a corrective gap between the femoral component and distal femur. I set posterior femoral referencing guide at 0? orientation to position the pin holes for the 4 in 1 chamfer block. The rodriguez wing measured the width of the distal femoral resection and selected the size of the 4 in 1 chamfer block and femoral component. The AP sizer confirmed the size. I measured the thickness of the posterior femoral resections with a caliper before making the anterior and chamfer cuts. I adjusted the thicknesses of each resection to match the thickness of the respective condyle of the femoral component within +/-0.5 mm after compensating for cartilage wear and curve. When a posterior resection femoral resection was 1-2 mm too thick or thin a corrective correction was made by shifting or rotating the 4 in 1 chamfer block as needed. The chamfer block was secured in the correct position with compression screws. The anterior and chamfer femoral resections were made. These caliper measurements and corrections verified that the femoral component was set coincident with the patient's pre-arthritic distal and posterior femoral joint lines. I removed all the medial and lateral femoral and tibial osteophytes to restore the pre arthritic length of the medial and lateral collateral ligaments. I ernetsina AP lines along the major axis of the lateral tibial plateau in between the tibial spines which identified the flexion extension plane of the knee. A conventional extramedullary tibial resection guide was applied to the ankle. An rodriguez wing was placed medially in the saw slot. The varus valgus angle of the tibial resection guide was adjusted until the guide paralleled the proximal tibial articular surface after compensating for cartilage and bone wear. The slope of flexion extension angle of the tibial resection guide was adjusted until the rodriguez wing paralleled the slope of the medial tibia after compensating for wear. The AP axis of the tibial resection guide was adjusted parallel to the two lines. The proximal tibia was resected, partially releasing the insertion of the posterior cruciate ligament. The thickness of the medial and lateral lateral tibial condyle was measured at the base of the tibial spines. I visually verified the slope of the medial border of the resection was parallel to the patient's pre arthritic slope after compensating for cartilage and bone wear. I removed the remnants of the posterior horns of the menisci and posterior osteophytes and cauterized the inferior lateral genicular vessels. The Aquamantys bipolar device was also used to for additional hemostasis. When the knee had a preoperative flexion contracture of 20? or more I teased the capsule off the posterior femur with a curved 3 quarter-inch osteotome. I administered the posterior femoral periosteal injection by delivering 10 cc using a 20 gauge spinal needle at the most medial and 10 cc at the most lateral femoral spur surface which reduced the risk of injury to the posterior neurovascular structures. I followed 6 options in a decision tree to fine tune the varus valgus and posterior slope orientation of the tibial component to restore the patient's pre arthritic tibial joint line and limb alignment. First, I adjusted the varus- valgus orientation of the proximal tibia resection working in 1 degree to 2 degree increments until there was negligible medial and lateral lift off of the distal femoral and proximal tibial resection from the spacer block during a varus valgus laxity assessment in extension. I selected the largest anatomic shape trial tibial base plate that fit within the cortical boundary of the proximal tibial resection. The base plate was best fit parallel to the cortical boundary which set the Internal-external orientation of the anterior to posterior and medial to lateral positions. The best fit method set the AP axis of the tibial base plate and insert parallel to the flexion extension plane of the pre arthritic knee. I pinned the trial tibial base plate, prepared the cruciate slot, and fixed the base plate to the tibia with the cruciate stem. I inserted the trial femoral component. The knee was placed in full extension. Varus valgus laxity is of the knee with trial components were assessed. When asymmetric laxity was observed a 1-2 degree varus or valgus recut guide was used to fine tune the tibial resection until the laxity was 1 degree or less in full extension like the robinson knee. The following steps determined the optimal insert thickness within +/-1 mm. First I inserted an insert goniometer that matched the thickness of the spacer block. I reduced the patella and then with the knee in maximum extension, I verified the knee hyperextended a few degrees and had negligible varus valgus laxity, like the pre arthritic knee. Next, I measured the external tibial orientation which was the angle the insert goniometer intersected the sagittal line on the medial condyle of the femoral trial component. Then with the knee in 15-30 degrees flexion I verified a 3-4 mm gap in the lateral compartment and no gap in the medial compartment during a 2nd varus valgus laxity test. Next, I placed the knee in 90? of flexion and the foot resting on the operating table and measured the internal tibial orientation. I repeated the steps until I identified the insert thickness that provided the highest external tibia orientation in extension and the highest internal tibial orientation at 90? fl exion without anterior lift-off of the insert from the tibial base plate. The insert with this thickness was implanted. I applied a posterior drawer test with the tibia distracted by gravity and malia ified no posterior subluxation of the tibia relative to the femur. The thickness of the robinson patella was measured with a caliper. The patella was resected using the oscillating saw. The best fitting anatomic patella button was selected. The fixation holes were drilled. When the patella and patella buttons combined thickness was thicker than the robinson patella, the patella was recut. The patella remained centered on the trochlea and tracked well throughout the entire arc of flexion and extension. I used pulse lavage to clean the bony surfaces of debris and dried bone. I cemented the tibial, femoral, and patellar components using 1 bag of methylmethacrylate with Gentamycin, then rechecked the stability at full extension, 15-30 degrees, and 90? flexion and verified methodist of the entire arc of motion of the knee. The circulating nurse confirmed the sponge and needle counts were correct. I used pulse lavage to rinse the joint and wound. The extensor mechanism was closed with interrupted #1 Vicryl suture and #1 running Stratafix suture. The subcutaneous layer was closed with interrupted #1 Vicryl suture followed by 2-0 Stratafix and 3-0 Stratafix. Steri-Strips placed on the skin. Silver impregnated occlusive dressing applied to the wound. A light gauze wrap and Twin bandage were placed. The patient was transferred to the recovery room in stable condition. There were no complications. Implants Medacta GMK spheriKA Femoral component SpheriKA size 2+, tibial component size 2, vitamin-E flex insert, thickness 13mm. Estimated Blood Loss 20 Drains No Pathology None sent Complications No immediate complications Condition Stable Disposition PACU [facility] Billing Surgery - Charge Forward: Surgery Billing
[2024-12-05] MEDS: oxyCODONE HCL (*CRX) 5 MG TAB IR PO (16:25)
[2024-12-05] MEDS: ACETAMINOPHEN 325 MG TABLET 650 MG PO ×2 (16:26→23:04)
[2024-12-05] MEDS: MELOXICAM 7.5 MG TABLET PO (16:26)
[2024-12-05] MEDS: predniSONE 5 MG TABLET PO (16:26)
[2024-12-05] MEDS: SENNA/DOCUSATE SODIUM TABLET 2 TAB PO (16:26)
[2024-12-05] MEDS: CYCLOBENZAPRINE HCL 10 MG TABLET PO (16:27)
[2024-12-05] MEDS: ASPIRIN 81 MG ENTERIC TABLET PO (20:08)
[2024-12-05] MEDS: FAMOTIDINE 20 MG TABLET PO (20:08)
[2024-12-06] VITALS: BP 111/46; PULSE 65; RESP 18; TEMP 37; O2SAT 93
[2024-12-06] MEDS: ceFAZolin 2 GM/D5W 50 ML 2 GM/50 ML BAG IVPB (02:10)
[2024-12-06 04:00] VITALS: BP 106/51; PULSE 76; RESP 16; TEMP 36.8; O2SAT 93
[2024-12-06] MEDS: ACETAMINOPHEN 325 MG TABLET 650 MG PO (05:04)
[2024-12-06 06:13] LABS: Basophils Percent Auto 0.1 % (0.2-1.2); Hematocrit 28.4 % (37.0-47.0); Hemoglobin 9.4 g/dL (12.0-15.0); Immature Granulocyte Absolute 0.06 K/mm3 (0.00-0.031); Immature Granulocyte Percent A 0.7 % (0-0.5); Lymphocytes Absolute Auto 0.76 K/mm3 (0.9-3.2); Lymphocytes Percent Auto 9.1 % (18.3-44.2); Mean Corpuscular HGB Conc 33.1 g/dl (32-36); Mean Corpuscular Hemoglobin 30.5 pg (26-34); Mean Corpuscular Volume 92.2 fl (80-100); Mean Platelet Volume 10.2 fl (7.4-10.4); Monocytes Absolute Auto 0.7 K/mm3 (0.1-0.6); Monocytes Percent Auto 8.4 % (2.6-8.5); Neutrophils Absolute Auto 6.8 K/mm3 (1.3-6.7); Neutrophils Percent Auto 81.7 % (45.5-73.1); Platelet Count Result 157 k/mm3 (150-375); Red Blood Count 3.08 M/mm3 (4.2-5.4); Red Cell Distribution Width 13.2 % (11.5-14.5); White Blood Count 8.3 K/mm3 (4.5-10.0)
[2024-12-06 06:25] LABS: Anion Gap 5 mmol/L (4-12); Blood Urea Nitrogen 20 mg/dL (7-17); Calcium 8.1 mg/dL (8.4-10.2); Carbon Dioxide 24 mmol/L (22-30); Chloride 105 mmol/L (98-107); Estimated CRCL calculation 46 ml/min; Estimated Glomerular Filt Rate > 60; Glucose 104 mg/dL (65-110); Potassium 3.8 mmol/L (3.4-5.0); Sodium 134 mmol/L (137-145)
[2024-12-06 07:52] VITALS: BP 122/51; PULSE 73; RESP 18; TEMP 36.3; O2SAT 93
[2024-12-06] MEDS: SENNA/DOCUSATE SODIUM TABLET 2 TAB PO (08:33)
[2024-12-06] MEDS: LOSARTAN POTASSIUM 100 MG TABLET PO (08:34)
[2024-12-06] MEDS: MELOXICAM 7.5 MG TABLET PO (08:35)
[2024-12-06] MEDS: ASPIRIN 81 MG ENTERIC TABLET PO (08:36)
[2024-12-06] MEDS: FAMOTIDINE 20 MG TABLET PO (08:36)
[2024-12-06] MEDS: PANTOPRAZOLE 40 MG TABLET PO (08:36)
[2024-12-06 08:38] VITALS: BP 123/61
== END 2024-12-06 11:08 | disposition home or self-care (01) ==
LOC: ANHSURGERY 08:09 → ANH3MEDSUR 13:51
PROVIDERS: Physician Assistant Surgical; PCP Internal Medicine; Visit Provider Orthopaedic Surgery
PROC: (CPT 27447; principal; 2024-12-05 10:30)
DX: M17.11 Unilateral primary osteoarthritis, right knee (principal); M25.761 Osteophyte, right knee; E78.5 Hyperlipidemia, unspecified; I10 Essential (primary) hypertension; K21.9 Gastro-esophageal reflux disease without esophagitis; G89.29 Other chronic pain; M54.50 Low back pain, unspecified; E66.9 Obesity, unspecified; Z68.34 Body mass index [BMI] 34.0-34.9, adult; Z79.82 Long term (current) use of aspirin; Z79.891 Long term (current) use of opiate analgesic; Z79.52 Long term (current) use of systemic steroids; Z96.652 Presence of left artificial knee joint; Z87.19 Personal history of other diseases of the digestive system; Z85.42 Personal history of malignant neoplasm of other parts of uterus; Z80.0 Family history of malignant neoplasm of digestive organs; Z80.49 Family history of malignant neoplasm of other genital organs; Z82.49 Family history of ischemic heart disease and other diseases of the circulatory system
CPT/HCPCS: 27447; 36415; 73560; 80048; 85025; 86850; 86900; 86901; 97110; 97161; 97165; 97530; 97535; A9270; C1713; C1776; J0171; J0690; J1100; J1885; J2003; J2270; J2405; J2704; J2795; J3010; J7030; J7120; J7512

== ENCOUNTER 2024-12-19 09:51 | Outpatient (RCR) | payer MEDICARE, SELFPAY ==
--- NOTE | 2024-12-19 11:43 | OPREHPOC ---
Outpatient Therapy Plan of Care This is a Multidisciplinary Plan of Care that may contain components documented by all disciplines (PT, OT, and ST.) PT Problem 1 PT Problem #1 Knowledge Deficit PT Goal 1 Goal / Goal Update The patient will be independent in a home exercise program. Target Visit 4 PT Problem 2 PT Problem #2 Pain PT Goal 1 Goal / Goal Update The patient will report no greater than 1/10 right knee pain with community ambulation and stair negotiation. Target Visit 10 PT Problem 3 PT Problem #3 Impaired Range of Motion PT Goal 1 Goal / Goal Update The patient will demonstrate 0-120 degrees right knee AROM to improve gait and stair negotiation. Target Visit 10 PT Problem 4 PT Problem #4 Impaired Functional Mobility PT Goal 1 Goal / Goal Update The patient will demonstrate 25% or less self perceived disability per the LEFS questionnaire. The patient will ambulate 1,200 feet during the 6 MWT to improve community ambulation. The patient will demonstrate a reciprocal pattern with stair negotiation. Target Visit 10 PT Problem 5 PT Problem #5 Impaired Balance PT Goal 1 Goal / Goal Update The patient will improve her Tinetti Balance score to 25 or greater indicating a low fall risk. The patient will demonstrate 12 seconds or less on her TUG test. Target Visit 10
--- NOTE | 2024-12-19 11:43 | PTOPEVAL1 ---
Assessment and note entered by Argenis Caraballo, PT Evaluation Information Assessment Status Evaluation ICD-10 Condition Codes (PT) Pain in right knee M25.561,Encounter for other orthopedic aftercare Z47.89,Aftercare following joint replacement surgery Z47.1 Onset 12/05/24 Subjective Information Destiny Mullins reports she had her right knee replaced on 12/05/24 due to osteoarthritis. She stayed overnight following the surgery and then was discharged. She has been trying to do some exercises consisting of kicking up from sitting and sliding it under her chair. She notes pain with bending her knee and at night. She has 4 steps to get into her home and she uses the handrail, her cane, and taking them one at a time. She is using a cane and walker for ambulation and occasionally she will not use an AD in her home. She has not returned to driving yet. 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 She only used pain medication for 2 days following surgery. Reported Pain Level Pain Score 2: Self Report Assessment PT Clinical Summary Destiny Mullins presents 2 weeks s/p right TKA. She has difficulty with bending the left knee, walking , and stairs. She objectively demonstrates decreased left knee AROM, decreased left knee and hip strength, decreased balance, impaired gait, and decreased functional abilities. She will benefit from skilled PT to address these limitations. Plan of Care Interventions Electrical Stimulation,Gait Training,Hot Pack/Cold Pack,Intermittent Compression Pump,Manual Therapy ,Neuro Re-education,Patient/Caregiver Education, Therapeutic Activities,Therapeutic Exercise PT Services Indicated Yes Treatment Frequency and 2 times a week for 10 visits Duration These treatments will address the objective and functional deficits as defined above. The patient will be advanced safely and appropriately in order for the patient to progress towards his/her prior level of function. Additional exercises will be introduced and as well as a comprehensive home exercise program upon discharge, if needed, ?to ensure carryover of functional gains achieved in the clinic. This treatment plan has been reviewed and agreement upon by the patient.
--- NOTE | 2025-01-19 09:40 | OPREHPOC ---
Outpatient Therapy Plan of Care This is a Multidisciplinary Plan of Care that may contain components documented by all disciplines (PT, OT, and ST.) PT Problem 1 PT Problem #1 Knowledge Deficit PT Goal 1 Goal / Goal Update The patient will be independent in a home exercise program. Target Visit 4 Progress Met PT Problem 2 PT Problem #2 Pain PT Goal 1 Goal / Goal Update The patient will report no greater than 1/10 right knee pain with community ambulation and stair negotiation. Target Visit 10 Progress Met PT Problem 3 PT Problem #3 Impaired Range of Motion PT Goal 1 Goal / Goal Update The patient will demonstrate 0-120 degrees right knee AROM to improve gait and stair negotiation. Target Visit 10 Progress Met PT Problem 4 PT Problem #4 Impaired Functional Mobility PT Goal 1 Goal / Goal Update The patient will demonstrate 25% or less self perceived disability per the LEFS questionnaire. - not met The patient will ambulate 1,200 feet during the 6 MWT to improve community ambulation. -not met The patient will demonstrate a reciprocal pattern with stair negotiation. -met Target Visit 10 Progress Partially Met PT Problem 5 PT Problem #5 Impaired Balance PT Goal 1 Goal / Goal Update The patient will improve her Tinetti Balance score to 25 or greater indicating a low fall risk. -met The patient will demonstrate 12 seconds or less on her TUG test. -met Target Visit 10 Progress Met
--- NOTE | 2025-01-19 09:40 | PTOPDC ---
Assessment and note entered by Gabrielle Terry, PT Evaluation Information Assessment Status Discharge ICD-10 Condition Codes (PT) Pain in right knee M25.561,Encounter for other orthopedic aftercare Z47.89,Aftercare following joint replacement surgery Z47.1 Onset 12/05/24 Subjective Information Pt reports feeling satisfied with the progress she 's made in PT. She denies pain currently but reports she did have some pain when pulling weeds sitting down and she had to get up off the chair a lot when moving to different places to pull weeds . She's walking with a cane which she used before surgery and she is no longer using a walker to ambulate. She is also back to driving. She notes continued independence with her HEP and feels ready to discharge from therapy today. She goes back to the doctor on the . Reported Pain Level Pain Score 0: Self Report Assessment PT Clinical Summary Mrs. Dixon presents for her 10th skilled PT visit following R TKA on 12/05/24 today. She demonstrates sufficient R knee AROM for ambulation and stair negotiation and has also made good improvements in her balance and endurance. She has met or partially met all therapeutic goals set for her and is appropriate for discharge from skilled PT today. Plan of Care PT Services Indicated No
== END 2025-01-19 10:50 | disposition home or self-care (01) ==
LOC: CHSPT 09:51
PROVIDERS: Visit Provider Physician Assistant Surgical
DX: Z47.1 Aftercare following joint replacement surgery (principal); Z96.651 Presence of right artificial knee joint
CPT/HCPCS: 97016; 97110; 97112; 97150; 97161; 97530; 97750

== ENCOUNTER 2024-12-25 15:04 | Outpatient (CLI) | payer MEDICARE, SELFPAY ==
--- NOTE | ~2024-12-25 | XR_ITS ---
EXAM: XR knee RT 3V DATE: 12/25/2024 15:19 HISTORY: M17.11 - Unilateral primary osteoarthritis, right knee . COMPARISON: 12/05/2024. FINDINGS: Decreased mineralization. No fracture or dislocation. No lytic or blastic lesion. Uncompli cated appearing right knee arthroplasty hardware, in good position. No erosion or periosteal change. Small-volume joint fluid. Fluid density popliteal mass, with calcification. IMPRESSION: No radiographic evidence of hardware related complication. 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 Reviewed, dictated and finalized at location K. IMPRESSION: No radiographic evidence of hardware related complication. Likely l arge Lopez's cyst.
== END 2024-12-25 15:05 | disposition home or self-care (01) ==
LOC: MICIMG 15:06
PROVIDERS: PCP Orthopaedic Surgery; Visit Provider Orthopaedic Surgery
DX: M17.11 Unilateral primary osteoarthritis, right knee (principal); Z96.651 Presence of right artificial knee joint
CPT/HCPCS: 73562